=== PATIENT | female | born 1990 | race African-American/Black ===

== ENCOUNTER 2016-09-19 17:13 | Emergency (ER) | payer MEDICAID ==
[2016-09-19] MEDS ORDERED: Sodium Chloride 0.9% 10 ML Syringe FLUSH PRN (17:27)
[2016-09-19] MEDS ORDERED: Sodium Chloride 0.9% 2.5 ML Syringe FLUSH PRN (17:27)
--- NOTE | 2016-09-19 17:27 | EDM.PDOC ---
ED HPI GENERAL MEDICAL PROBLEM - General Chief Complaint: General Stated Complaint: DIZZY/SHORT OF BREATH Time Seen by Provider: 09/19/16 17:13 Source of Information: Reports: Patient History Limitations: Reports: No limitations - History of Present Illness INITIAL COMMENTS - FREE TEXT/NARRATIVE: History of present illness: [] Patient was on her way to work and when she was coughing and she started feeling very dizzy and short of breath. She arrived stating that the dizziness is worse when she turns her head and she is lightheaded. He has not passed out. She denies any chest pain, back pain or any recent illnesses or other complaints. Patient states she has no medical problems and only takes vitamins. After reviewing her chart I learned she has had a gastric sleeve. Review of systems: As per history of present illness and below otherwise all systems reviewed and negative. Past medical history: As per history of present illness and as reviewed below otherwise noncontributory. Surgical history: As per history of present illness and as reviewed below otherwise noncontributory. Social history: No reported history of drug or alcohol abuse. Family history: As per history of present illness and as reviewed below otherwise noncontributory. Physical exam: General: Well developed, well nourished in NAD HEENT: Atraumatic, normocephalic, pupils reactive, negative for conjunctival pallor or scleral icterus, mucous membranes moist, throat clear, neck supple, nontender, trachea midline. Lungs: Clear to auscultation, breath sounds equal bilaterally, chest nontender. Heart: S1S2, regular, negative for clicks, rubs, or JVD. Abdomen: Soft, nondistended, nontender. Negative for masses or hepatosplenomegaly. Negative for costovertebral tenderness. Pelvis: Stable nontender. Genitourinary: Deferred. Rectal: Deferred. Extremities: Atraumatic, negative for cords or calf pain. Neurovascular unremarkable. Neuro: Awake, alert, oriented. Cranial nerves II through XII unremarkable. Cerebellum unremarkable. Motor and sensory unremarkable throughout. Exam nonfocal. Diagnostics: []labs showing progressive worsening of anemia. troponin, d-dimer negative Therapeutics: []meclizine Impression: []benign positional vertigo Plan: []meclizine, feso4 supplements until further anemia work up. follow up pmd Definitive disposition and diagnosis as appropriate pending reevaluation and review of above. - Related Data Allergies Allergy/AdvReac Type Severity Reaction Status Date / Time morphine Allergy Severe Rash Verified 05/31/16 10:59 Home Meds: Home Meds Ascorbic Acid [Vitamin C] 1,000 mg PO DAILY 02/24/15 [History] [place]-3 Fatty Acids [Fish Oil] 900 mg PO DAILY 02/24/15 [History] Women Alive Multivitamin 1 tab PO DAILY 02/24/15 [History] Cyclobenzaprine HCl 5 mg PO TID PRN #30 tablet 05/31/16 [Rx] Past Medical History - Past Health History Medical/Surgical History: Denies Medical/Surgical History HEENT History: Reports: None Cardiovascular History: Reports: None Respiratory History: Reports: COPD Gastrointestinal History: Reports: None, Other (see below) Other Gastrointestinal History: Gastric Bypass done in [place] on 09/21/2015 Genitourinary History: Reports: None 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 Musculoskeletal History: Reports: None Other Musculoskeletal History: R wrist- fracture- plates et screws Neurological History: Reports: None Psychiatric History: Reports: None Endocrine/Metabolic History: Reports: None Hematologic History: Reports: None Immunologic History: Reports: None Oncologic (Cancer) History: Reports: None - Infectious Disease History Infectious Disease History: Reports: None - Past Surgical History GI Surgical History: Reports: Bariatric procedure Other Female Surgeries/Procedures: x2 Other Musculoskeletal Surgeries/Procedures:: Right wrist repair with metal plate Social & Family History - Family History Family Medical History: Noncontributory Cardiac: Reports: None Respiratory: Reports: None GI: Reports: None Psychiatric: Reports: None Endocrine/Metabolic: Reports: None Hematologic: Reports: None - Tobacco Use Smoking Status *Q: Never Smoker Second Hand Smoke Exposure: No - Caffeine Use Caffeine Use: Reports: None - Recreational Drug Use Recreational Drug Use: No ED ROS GENERAL - Review of Systems Review Of Systems: See Below (See history of present illness) ED EXAM, GENERAL - Physical Exam Exam: See Below (See history of present illness) Course - Vital Signs Last Recorded V/S: Last Vital Signs Temp 37.1 C 09/19/16 17:28 Pulse 98 09/19/16 17:28 Resp 18 09/19/16 17:28 BP 126/59 L 09/19/16 17:28 Pulse Ox 98 09/19/16 17:28 - Orders/Labs/Meds Orders: Active Orders 24 hr Category Date Time Status EKG 12 Lead [EKG Documentation Completion] [RC] STAT Care 09/19/16 17:19 Active Sodium Chloride 0.9% [Saline Flush] Med 09/19/16 17:27 Active 10 ml FLUSH ASDIRECTED PRN Sodium Chloride 0.9% [Saline Flush] Med 09/19/16 17:27 Active 2.5 ml FLUSH ASDIRECTED PRN Peripheral IV Insertion Adult [OM.PC] Stat Oth 09/19/16 17:27 Ordered Medication Orders Sodium Chloride (Saline Flush) 10 ml FLUSH ASDIRECTED PRN PRN Reason: Keep Vein Open Sodium Chloride (Saline Flush) 2.5 ml FLUSH ASDIRECTED PRN PRN Reason: Keep Vein Open Labs: Laboratory Tests 09/19/16 09/19/16 09/19/16 Range/Units 17:34 17:34 17:45 WBC (4.0-11.0) K/uL RBC (4.30-5.90) M/uL Hgb (12.0-16.0) g/dL Hct (36.0-46.0) % MCV (80.0-98.0) fL MCH (27.0-32.0) pg MCHC (31.0-37.0) g/dL RDW Std Deviation (28.0-62.0) fl RDW Coeff of Moe (11.0-15.0) % Plt Count (150-400) K/uL MPV (7.40-12.00) fL Neut % (Auto) (48.0-80.0) % Lymph % (Auto) (16.0-40.0) % Craig % (Auto) (0.0-15.0) % Eos % (Auto) (0.0-7.0) % Baso % (Auto) (0.0-1.5) % Neut # (Auto) (1.4-5.7) K/uL Lymph # (Auto) (0.6-2.4) K/uL Craig # (Auto) (0.0-0.8) K/uL Eos # (Auto) (0.0-0.7) K/uL Baso # (Auto) (0.0-0.1) K/uL Nucleated RBC % /100WBC Nucleated RBCs # K/uL D-Dimer, Quantitative (0.0-0.52) mg/LFEU Sodium (136-146) mmol/L Potassium (3.5-5.1) mmol/L Chloride (98-110) mmol/L Carbon Dioxide (21-31) mmol/L BUN (6.0-23.0) mg/dL Creatinine (0.6-1.5) mg/dL Est Cr Clr Drug Dosing mL/min Estimated GFR (MDRD) ml/min Glucose (60-110) mg/dL POC Glucose 90 (60-110) mg/dL Calcium (8.8-10.8) mg/dL Total Bilirubin (0.1-1.5) mg/dL AST (5-40) IU/L ALT (8-54) IU/L Alkaline Phosphatase (40-150) Troponin I (0.0-0.29) NG/ML Total Protein (6.0-8.0) g/dL Albumin (3.5-5.0) g/dL Globulin (2.0-3.5) g/dL Albumin/Globulin Ratio (1.3-2.8) Urine Color YELLOW Urine Appearance CLEAR Urine pH 5.5 (5.0-8.0) Ur Specific [place] 1.010 (1.001-1.035) Urine Protein NEGATIVE (NEGATIVE) mg/dL Urine Glucose (UA) NEGATIVE (NEGATIVE) mg/dL Urine Ketones NEGATIVE (NEGATIVE) mg/dL Urine Occult Blood NEGATIVE (NEGATIVE) Urine Nitrite NEGATIVE (NEGATIVE) Urine Bilirubin NEGATIVE (NEGATIVE) Urine Urobilinogen 0.2 (<2.0) EU/dL Ur Leukocyte Esterase NEGATIVE (NEGATIVE) Urine RBC 0-1 (0-2/HPF) Urine WBC 0-1 (0-5/HPF) Ur Epithelial Cells FEW (NONE-FEW) Urine Bacteria FEW (NEGATIVE) Urine HCG, Qual NEGATIVE (NEGATIVE) 09/19/16 09/19/16 09/19/16 Range/Units 17:46 17:46 17:46 WBC 7.06 (4.0-11.0) K/uL RBC 4.27 L (4.30-5.90) M/uL Hgb 10.2 L (12.0-16.0) g/dL Hct 33.2 L (36.0-46.0) % MCV 77.8 L (80.0-98.0) fL MCH 23.9 L (27.0-32.0) pg MCHC 30.7 L (31.0-37.0) g/dL RDW Std Deviation 41.1 (28.0-62.0) fl RDW Coeff of Moe 15 (11.0-15.0) % Plt Count 357 (150-400) K/uL MPV 10.40 (7.40-12.00) fL Neut % (Auto) 48.8 (48.0-80.0) % Lymph % (Auto) 40.4 H (16.0-40.0) % Craig % (Auto) 7.9 (0.0-15.0) % Eos % (Auto) 1.6 (0.0-7.0) % Baso % (Auto) 1.3 (0.0-1.5) % Neut # (Auto) 3.5 (1.4-5.7) K/uL Lymph # (Auto) 2.9 H (0.6-2.4) K/uL Craig # (Auto) 0.6 (0.0-0.8) K/uL Eos # (Auto) 0.1 (0.0-0.7) K/uL Baso # (Auto) 0.1 (0.0-0.1) K/uL Nucleated RBC % 0.0 /100WBC Nucleated RBCs # 0 K/uL D-Dimer, Quantitative (0.0-0.52) mg/LFEU Sodium 139 (136-146) mmol/L Potassium 4.0 (3.5-5.1) mmol/L Chloride 111 H (98-110) mmol/L Carbon Dioxide 21 (21-31) mmol/L BUN 12 (6.0-23.0) mg/dL Creatinine 0.7 (0.6-1.5) mg/dL Est Cr Clr Drug Dosing 126.16 mL/min Estimated GFR (MDRD) > 60.0 ml/min Glucose 86 (60-110) mg/dL POC Glucose (60-110) mg/dL Calcium 8.9 (8.8-10.8) mg/dL Total Bilirubin 0.7 (0.1-1.5) mg/dL AST 18 (5-40) IU/L ALT 13 (8-54) IU/L Alkaline Phosphatase 67 (40-150) Troponin I < 0.10 (0.0-0.29) NG/ML Total Protein 7.2 (6.0-8.0) g/dL Albumin 3.8 (3.5-5.0) g/dL Globulin 3.4 (2.0-3.5) g/dL Albumin/Globulin Ratio 1.1 L (1.3-2.8) Urine Color Urine Appearance Urine pH (5.0-8.0) Ur Specific [place] (1.001-1.035) Urine Protein (NEGATIVE) mg/dL Urine Glucose (UA) (NEGATIVE) mg/dL Urine Ketones (NEGATIVE) mg/dL Urine Occult Blood (NEGATIVE) Urine Nitrite (NEGATIVE) Urine Bilirubin (NEGATIVE) Urine Urobilinogen (<2.0) EU/dL Ur Leukocyte Esterase (NEGATIVE) Urine RBC (0-2/HPF) Urine WBC (0-5/HPF) Ur Epithelial Cells (NONE-FEW) Urine Bacteria (NEGATIVE) Urine HCG, Qual (NEGATIVE) 09/19/16 Range/Units 17:46 WBC (4.0-11.0) K/uL RBC (4.30-5.90) M/uL Hgb (12.0-16.0) g/dL Hct (36.0-46.0) % MCV (80.0-98.0) fL MCH (27.0-32.0) pg MCHC (31.0-37.0) g/dL RDW Std Deviation (28.0-62.0) fl RDW Coeff of Moe (11.0-15.0) % Plt Count (150-400) K/uL MPV (7.40-12.00) fL Neut % (Auto) (48.0-80.0) % Lymph % (Auto) (16.0-40.0) % Craig % (Auto) (0.0-15.0) % Eos % (Auto) (0.0-7.0) % Baso % (Auto) (0.0-1.5) % Neut # (Auto) (1.4-5.7) K/uL Lymph # (Auto) (0.6-2.4) K/uL Craig # (Auto) (0.0-0.8) K/uL Eos # (Auto) (0.0-0.7) K/uL Baso # (Auto) (0.0-0.1) K/uL Nucleated RBC % /100WBC Nucleated RBCs # K/uL D-Dimer, Quantitative 0.24 (0.0-0.52) mg/LFEU Sodium (136-146) mmol/L Potassium (3.5-5.1) mmol/L Chloride (98-110) mmol/L Carbon Dioxide (21-31) mmol/L BUN (6.0-23.0) mg/dL Creatinine (0.6-1.5) mg/dL Est Cr Clr Drug Dosing mL/min Estimated GFR (MDRD) ml/min Glucose (60-110) mg/dL POC Glucose (60-110) mg/dL Calcium (8.8-10.8) mg/dL Total Bilirubin (0.1-1.5) mg/dL AST (5-40) IU/L ALT (8-54) IU/L Alkaline Phosphatase (40-150) Troponin I (0.0-0.29) NG/ML Total Protein (6.0-8.0) g/dL Albumin (3.5-5.0) g/dL Globulin (2.0-3.5) g/dL Albumin/Globulin Ratio (1.3-2.8) Urine Color Urine Appearance Urine pH (5.0-8.0) Ur Specific [place] (1.001-1.035) Urine Protein (NEGATIVE) mg/dL Urine Glucose (UA) (NEGATIVE) mg/dL Urine Ketones (NEGATIVE) mg/dL Urine Occult Blood (NEGATIVE) Urine Nitrite (NEGATIVE) Urine Bilirubin (NEGATIVE) Urine Urobilinogen (<2.0) EU/dL Ur Leukocyte Esterase (NEGATIVE) Urine RBC (0-2/HPF) Urine WBC (0-5/HPF) Ur Epithelial Cells (NONE-FEW) Urine Bacteria (NEGATIVE) Urine HCG, Qual (NEGATIVE) Meds: Medications Generic Name Dose Route Start Last Admin Trade Name Freq PRN Reason Stop Dose Admin Sodium Chloride 10 ml 09/19/16 17:27 Saline Flush FLUSH ASDIRECTED PRN Keep Vein Open Sodium Chloride 2.5 ml 09/19/16 17:27 Saline Flush FLUSH ASDIRECTED PRN Keep Vein Open Discontinued Medications Generic Name Dose Route Start Last Admin Trade Name Adonay PRN Reason Stop Dose Admin Meclizine HCl 25 mg 09/19/16 18:29 09/19/16 18:35 Antivert PO 09/19/16 18:30 25 mg ONETIME ONE Administration Departure - Departure Time of Disposition: 18:44 Disposition: Home, Self-Care 01 Condition: good Clinical Impression: Benign positional vertigo Qualifiers: Laterality: unspecified laterality Qualified Code(s): H81.10 - Benign paroxysmal vertigo, unspecified ear Instructions: Benign Positional Vertigo Referrals: Evangelist Hammer MD [Primary Care Provider] - Forms: ED Department Discharge - My Orders Last 24 Hours: My Active Orders 09/19/16 17:19 EKG 12 Lead [EKG Documentation Completion] [RC] STAT 09/19/16 17:27 Sodium Chloride 0.9% [Saline Flush] 10 ml FLUSH ASDIRECTED PRN Sodium Chloride 0.9% [Saline Flush] 2.5 ml FLUSH ASDIRECTED PRN Peripheral IV Insertion Adult [OM.PC] Stat - Assessment/Plan Last 24 Hours: My Active Orders 09/19/16 17:19 EKG 12 Lead [EKG Documentation Completion] [RC] STAT 09/19/16 17:27 Sodium Chloride 0.9% [Saline Flush] 10 ml FLUSH ASDIRECTED PRN Sodium Chloride 0.9% [Saline Flush] 2.5 ml FLUSH ASDIRECTED PRN Peripheral IV Insertion Adult [OM.PC] Stat
[2016-09-19 17:29] VITALS: BP 126/59
[2016-09-19 18:25] LABS: CHLORIDE,CL 111 mmol/L (98-110); SODIUM,NA 139 mmol/L (136-146)
[2016-09-19] MEDS ORDERED: Meclizine 25 MG Tab PO ONE (18:29)
== END 2016-09-19 19:23 | disposition home or self-care (01) ==
LOC: MW.ED 17:13
DX: H81.10 Benign paroxysmal vertigo, unspecified ear (principal); J44.9 Chronic obstructive pulmonary disease, unspecified; Z79.899 Other long term (current) drug therapy; Z98.84 Bariatric surgery status; Z88.5 Allergy status to narcotic agent
CPT/HCPCS: 36415; 80053; 81001; 81025; 82962; 84484; 85025; 85379; 93005; 99284; A9270; 99283

== ENCOUNTER 2017-04-19 19:57 | Emergency (ER) | payer BC, MEDICAID ==
--- NOTE | 2017-04-19 20:09 | EDM.PDOC ---
ED HPI GENERAL MEDICAL PROBLEM - General Chief Complaint: Cardiovascular Problem Stated Complaint: PT HEART RACING Time Seen by Provider: 04/19/17 20:03 Source of Information: Reports: Patient History Limitations: Reports: No Limitations - History of Present Illness INITIAL COMMENTS - FREE TEXT/NARRATIVE: HISTORY AND PHYSICAL: History of present illness: Patient is a 27-year-old female who presents to the emergency room today with complaints of near syncope, fatigue, palpitations 24 hours. Patient reports that yesterday she felt fatigued otherwise had a normal day. This morning when she woke up she started to feel "like I could pass out.. all day". States she would intermittently get palpitations where she felt like her heart was racing. Denies any shortness of breath, abdominal pain, nausea, vomiting or diarrhea. Patient did have surgery on her thyroid in February 2017. She states that surgery was supposed to be a total thyroidectomy which she found out was only a partial thyroidectomy. She states that she was taking levothyroxine 150 g and was told she needed to stop the medication list last week as they mistakenly only took out part of the thyroid. Her thyroid was checked approximately one week ago. Last menstrual period was March 30, 2017-denies any chance of . Denies any use of stimulants, street drugs, smoking or caffeinated products. Review of systems: As per history of present illness and below otherwise all systems reviewed and negative. Past medical history: As per history of present illness and as reviewed below otherwise noncontributory. Surgical history: As per history of present illness and as reviewed below otherwise noncontributory. Social history: No reported history of drug or alcohol abuse. Family history: As per history of present illness and as reviewed below otherwise noncontributory. Physical exam: Gen.: Nontoxic appearing 27-year-old female. Well-developed and well-nourished -Greenlandic. Able to speak in full sentences without shortness of breath. HEENT: Atraumatic, normocephalic, pupils reactive, negative for conjunctival pallor or scleral icterus, mucous membranes moist, throat clear, neck supple, nontender, trachea midline. Lungs: Clear to auscultation, breath sounds equal bilaterally, chest nontender. Heart: S1S2, regular, negative for clicks, rubs, or JVD. Abdomen: Soft, obese, nondistended, left upper quadrant tenderness with deep palpation. Negative for masses. Negative for costovertebral tenderness. Pelvis: Stable nontender. Genitourinary: Deferred. Rectal: Deferred. Skin: There is a well healed linear scar from her thyroidectomy.Skin lesions or rashes noted. Extremities: Atraumatic, negative for cords or calf pain. Neurovascular unremarkable. Neuro: Awake, alert, oriented. Cranial nerves II through XII unremarkable. Cerebellum unremarkable. Motor and sensory unremarkable throughout. Exam nonfocal. Discussed the lab results with patient. I did inform her that her hemoglobin was low today. She does state that she has been told that her "iron is low" and she has heavy menses for the past couple years. Presumptively iron deficiency anemia. She has never needed blood transfusions. No history of sickle cell anemia. Chest x-ray shows no acute findings, unremarkable. TSH is within normal limits. Urinalysis is normal. We did discuss follow-up and that she needs to follow-up with her primary care provider if she continues to have palpitations and to address her anemia. Today' s EKG and diagnostic cardiac sonographer do not show any abnormalities. Follow-up as needed with an FLIGHT SUPERINTENDENT to discuss the menses. Patient voices understanding and is agreeable to plan of care. Denies any further questions at this time. Diagnostics: CBC, CMP, troponin, EKG, one view chest x-ray, TSH, UA, urine Therapeutics: IV fluid Impression: Palpitations Plan: 1. Please follow-up with your primary care provider to address your palpitations if these continue. You may need a Holter monitor if these are persistent. Make sure you are staying well-hydrated to prevent dehydration. Today's TSH (thyroid level) was normal. Please have this monitored by your primary care provider. 2. Please follow-up with FLIGHT SUPERINTENDENT to discuss your heavy menses and address further follow-up. I would like you to start an iron pill daily. 3. Return to the ED as needed and as discussed. Definitive disposition and diagnosis as appropriate pending reevaluation and review of above. Onset: Today Duration: Day(s): Location: Reports: Chest, Generalized - Related Data Allergies Allergy/AdvReac Type Severity Reaction Status Date / Time morphine Allergy Severe Rash Verified 05/31/16 10:59 Home Meds: Home Meds Ascorbic Acid [Vitamin C] 1,000 mg PO DAILY 02/24/15 [History] Women Alive Multivitamin 1 tab PO DAILY 02/24/15 [History] Cholecalciferol (Vitamin D3) [Vitamin D3] 400 units PO DAILY 04/19/17 [History] Ferrous Sulfate [Iron] 04/19/17 [History] Past Medical History - Past Health History Medical/Surgical History: Denies Medical/Surgical History HEENT History: Reports: None Cardiovascular History: Reports: None Respiratory History: Reports: COPD Gastrointestinal History: Reports: None, Other (See Below) Other Gastrointestinal History: Gastric Bypass done in [place] on 09/21/2015 Genitourinary History: Reports: None FLIGHT SUPERINTENDENT History: Reports: None Musculoskeletal History: Reports: None Other Musculoskeletal History: R wrist- fracture- plates et screws Neurological History: Reports: None Psychiatric History: Reports: None Endocrine/Metabolic History: Reports: None Hematologic History: Reports: None Immunologic History: Reports: None Oncologic (Cancer) History: Reports: None - Infectious Disease History Infectious Disease History: Reports: None - Past Surgical History GI Surgical History: Reports: Bariatric Procedure Female Surgical History: Reports: Other (See Below) Social & Family History - Family History Family Medical History: Noncontributory Cardiac: Reports: None Respiratory: Reports: None GI: Reports: None Psychiatric: Reports: None Endocrine/Metabolic: Reports: None Hematologic: Reports: None - Tobacco Use Smoking Status *Q: Never Smoker Second Hand Smoke Exposure: No - Caffeine Use Caffeine Use: Reports: None - Recreational Drug Use Recreational Drug Use: No ED ROS GENERAL - Review of Systems Review Of Systems: ROS reveals no pertinent complaints other than HPI. ED EXAM, GENERAL - Physical Exam Exam: See Below (See dictation) Course - Vital Signs Last Recorded V/S: Last Vital Signs Temp 36.1 C 04/19/17 20:03 Pulse 77 04/19/17 21:55 Resp 12 04/19/17 21:55 BP 115/74 04/19/17 21:55 Pulse Ox 98 04/19/17 21:55 Orthostatic Blood Pressure [ 124/64 Standing] Orthostatic Blood Pressure [ 127/61 Sitting] Orthostatic Blood Pressure [ 118/66 Supine] - Orders/Labs/Meds Orders: Active Orders 24 hr Category Date Time Status EKG Documentation Completion [RC] STAT Care 04/19/17 20:09 Active Orthostatic Vital Signs [RC] ASDIRECTED Care 04/19/17 20:09 Active Chest 1V Frontal [CR] Stat Exams 04/19/17 20:09 Taken CULTURE URINE [RM] Stat Lab 04/19/17 21:06 Received Labs: Laboratory Tests 04/19/17 04/19/17 04/19/17 Range/Units 20:06 20:06 21:06 WBC 7.22 (4.0-11.0) K/uL RBC 4.20 L (4.30-5.90) M/uL Hgb 8.3 L (12.0-16.0) g/dL Hct 28.9 L (36.0-46.0) % MCV 68.8 L (80.0-98.0) fL MCH 19.8 L (27.0-32.0) pg MCHC 28.7 L (31.0-37.0) g/dL RDW Std Deviation 40.1 (28.0-62.0) fl RDW Coeff of Moe 16 H (11.0-15.0) % Plt Count 389 (150-400) K/uL MPV 10.10 (7.40-12.00) fL Neut % (Auto) 46.0 L (48.0-80.0) % Lymph % (Auto) 42.2 H (16.0-40.0) % [place] % (Auto) 9.7 (0.0-15.0) % Eos % (Auto) 1.1 (0.0-7.0) % Baso % (Auto) 1.0 (0.0-1.5) % Neut # (Auto) 3.3 (1.4-5.7) K/uL Lymph # (Auto) 3.1 H (0.6-2.4) K/uL [place] # (Auto) 0.7 (0.0-0.8) K/uL Eos # (Auto) 0.1 (0.0-0.7) K/uL Baso # (Auto) 0.1 (0.0-0.1) K/uL Nucleated RBC % 0.0 /100WBC Nucleated RBCs # 0 K/uL Sodium 138 (136-146) mmol/L Potassium 3.5 (3.5-5.1) mmol/L Chloride 109 (98-110) mmol/L Carbon Dioxide 22 (21-31) mmol/L BUN 10 (6.0-23.0) mg/dL Creatinine 0.7 (0.6-1.5) mg/dL Est Cr Clr Drug Dosing 125.04 mL/min Estimated GFR (MDRD) > 60.0 ml/min Glucose 87 (60-110) mg/dL Calcium 8.8 (8.8-10.8) mg/dL Total Bilirubin 0.7 (0.1-1.5) mg/dL AST 20 (5-40) IU/L ALT 16 (8-54) IU/L Alkaline Phosphatase 61 (40-150) Troponin I < 0.10 (0.0-0.29) NG/ML Total Protein 7.1 (6.0-8.0) g/dL Albumin 3.8 (3.5-5.0) g/dL Globulin 3.3 (2.0-3.5) g/dL Albumin/Globulin Ratio 1.2 L (1.3-2.8) TSH 3rd Generation 0.67 (0.47-5.0) uIU/mL Urine Color Urine Appearance Urine pH (5.0-8.0) Ur Specific [place] (1.001-1.035) Urine Protein (NEGATIVE) mg/dL Urine Glucose (UA) (NEGATIVE) mg/dL Urine Ketones (NEGATIVE) mg/dL Urine Occult Blood (NEGATIVE) Urine Nitrite (NEGATIVE) Urine Bilirubin (NEGATIVE) Urine Urobilinogen (<2.0) EU/dL Ur Leukocyte Esterase (NEGATIVE) Urine RBC (0-2/HPF) Urine WBC (0-5/HPF) Ur Epithelial Cells (NONE-FEW) Urine Bacteria (NEGATIVE) Urine HCG, Qual NEGATIVE (NEGATIVE) 04/19/17 Range/Units 21:06 WBC (4.0-11.0) K/uL RBC (4.30-5.90) M/uL Hgb (12.0-16.0) g/dL Hct (36.0-46.0) % MCV (80.0-98.0) fL MCH (27.0-32.0) pg MCHC (31.0-37.0) g/dL RDW Std Deviation (28.0-62.0) fl RDW Coeff of Moe (11.0-15.0) % Plt Count (150-400) K/uL MPV (7.40-12.00) fL Neut % (Auto) (48.0-80.0) % Lymph % (Auto) (16.0-40.0) % [place] % (Auto) (0.0-15.0) % Eos % (Auto) (0.0-7.0) % Baso % (Auto) (0.0-1.5) % Neut # (Auto) (1.4-5.7) K/uL Lymph # (Auto) (0.6-2.4) K/uL [place] # (Auto) (0.0-0.8) K/uL Eos # (Auto) (0.0-0.7) K/uL Baso # (Auto) (0.0-0.1) K/uL Nucleated RBC % /100WBC Nucleated RBCs # K/uL Sodium (136-146) mmol/L Potassium (3.5-5.1) mmol/L Chloride (98-110) mmol/L Carbon Dioxide (21-31) mmol/L BUN (6.0-23.0) mg/dL Creatinine (0.6-1.5) mg/dL Est Cr Clr Drug Dosing mL/min Estimated GFR (MDRD) ml/min Glucose (60-110) mg/dL Calcium (8.8-10.8) mg/dL Total Bilirubin (0.1-1.5) mg/dL AST (5-40) IU/L ALT (8-54) IU/L Alkaline Phosphatase (40-150) Troponin I (0.0-0.29) NG/ML Total Protein (6.0-8.0) g/dL Albumin (3.5-5.0) g/dL Globulin (2.0-3.5) g/dL Albumin/Globulin Ratio (1.3-2.8) TSH 3rd Generation (0.47-5.0) uIU/mL Urine Color YELLOW Urine Appearance HAZY Urine pH 6.0 (5.0-8.0) Ur Specific [place] >= 1.030 (1.001-1.035) Urine Protein NEGATIVE (NEGATIVE) mg/dL Urine Glucose (UA) NEGATIVE (NEGATIVE) mg/dL Urine Ketones TRACE H (NEGATIVE) mg/dL Urine Occult Blood NEGATIVE (NEGATIVE) Urine Nitrite NEGATIVE (NEGATIVE) Urine Bilirubin NEGATIVE (NEGATIVE) Urine Urobilinogen 0.2 (<2.0) EU/dL Ur Leukocyte Esterase TRACE (NEGATIVE) Urine RBC 1-2 (0-2/HPF) Urine WBC 4-6 (0-5/HPF) Ur Epithelial Cells MODERATE (NONE-FEW) Urine Bacteria FEW (NEGATIVE) Urine HCG, Qual (NEGATIVE) Meds: Medications Discontinued Medications Generic Name Dose Route Start Last Admin Trade Name Barrettq PRN Reason Stop Dose Admin Sodium Chloride 1,000 mls @ 999 mls/hr 04/19/17 20:10 04/19/17 20:23 Normal Saline IV 04/19/17 21:10 999 mls/hr STAT ONE Administration Departure - Departure Time of Disposition: 21:44 Disposition: Home, Self-Care 01 Condition: Good Clinical Impression: Palpitations Instructions: Palpitations, [id number] Referrals: PCP,None [Primary Care Provider] - Forms: ED Department Discharge Additional Instructions: My general discharge The following information is given to patients seen in the emergency department who are being discharged to home. This information is to outline your options for follow-up care. We provide all patients seen in our emergency department with a follow-up referral. The need for follow-up, as well as the timing and circumstances, are variable depending upon the specifics of your emergency department visit. If you don't have a primary care physician on staff, we will provide you with a referral. We always advise you to contact your personal physician following an emergency department visit to inform them of the circumstance of the visit and for follow-up with them and/or the need for any referrals to a consulting specialist. The emergency department will also refer you to a specialist when appropriate. This referral assures that you have the opportunity for follow-up care with a specialist. All of these measure are taken in an effort to provide you with optimal care, which includes your follow-up. Under all circumstances we always encourage you to contact your private physician who remains a resource for coordinating your care. When calling for follow-up care, please make the office aware that this follow-up is from your recent emergency room visit. If for any reason you are refused follow-up, please contact the [facility] Emergency Department at and asked to speak to the emergency department charge nurse. [facility] [address] [place] [address] [facility] [address] [place] [address] 1. Please follow-up with your primary care provider to address your palpitations if these continue. You may need a Holter monitor if these are persistent. Make sure you are staying well-hydrated to prevent dehydration. Today's TSH (thyroid level) was normal. Please have this monitored by your primary care provider. 2. Please follow-up with FLIGHT SUPERINTENDENT to discuss your heavy menses and address further follow-up. I would like you to start an iron pill daily for your anemia. 3. Return to the ED as needed and as discussed. - My Orders Last 24 Hours: My Active Orders 04/19/17 20:09 EKG Documentation Completion [RC] STAT Orthostatic Vital Signs [RC] ASDIRECTED Chest 1V Frontal [CR] Stat 04/19/17 21:06 CULTURE URINE [RM] Stat - Assessment/Plan Last 24 Hours: My Active Orders 04/19/17 20:09 EKG Documentation Completion [RC] STAT Orthostatic Vital Signs [RC] ASDIRECTED Chest 1V Frontal [CR] Stat 04/19/17 21:06 CULTURE URINE [RM] Stat
[2017-04-19] MEDS ORDERED: Sodium Chloride 0.9% 1,000 ML IV ONE (20:10)
[2017-04-19 20:45] LABS: CHLORIDE,CL 109 mmol/L (98-110); SODIUM,NA 138 mmol/L (136-146)
[2017-04-19 22:03] VITALS: BP 115/74
--- NOTE | 2017-04-20 14:43 | CR ---
EXAM DATE: 04/19/17 PATIENT'S AGE: 27 Patient: LISA BURRIS Facility: [place], [place] Site . Site : 1990 Study: XRay Chest [id number]/9/2017 8:52:43 PM Ordering Physician: Doctor Victoria Final Report: INDICATION: palpitations, lightheaded TECHNIQUE: Chest 1 view. COMPARISON: 05/31/16 FINDINGS: Cardiovascular and mediastinum: Heart size and vasculature are normal in caliber and appearance. Mediastinum is within normal limits. Lungs and pleural space: Lungs are clear. No sign of infiltrate or mass. No sign of pleural effusion. No pneumothorax. Bones and soft tissues: No significant findings. IMPRESSION: Unremarkable chest. Dictated by: Danny Javed MD @ 04/19/2017 21:10:10 (Electronic Signature) Report Signed by Proxy. GIANCARLO
== END 2017-04-19 21:57 | disposition home or self-care (01) ==
LOC: MW.ED 19:57
DX: R00.2 Palpitations (principal); Z88.5 Allergy status to narcotic agent; Z79.899 Other long term (current) drug therapy
CPT/HCPCS: 36415; 71010; 80053; 81001; 81025; 84443; 84484; 85025; 87086; 93005; 96360; 96361; 99285; J7040; 99283

== ENCOUNTER 2017-06-14 22:32 | Emergency (ER) | payer BC ==
[2017-06-15] MEDS ORDERED: Sodium Chloride 0.9% 1,000 ML IV ONE (00:04)
--- NOTE | 2017-06-15 00:05 | EDM.PDOC ---
ED HPI GENERAL MEDICAL PROBLEM - General Chief Complaint: Fever Stated Complaint: SICK Time Seen by Provider: 06/15/17 00:04 Source of Information: Reports: Patient - History of Present Illness INITIAL COMMENTS - FREE TEXT/NARRATIVE: HISTORY AND PHYSICAL: History of present illness: [Objective fever and ear pain that began yesterday Patient has had 2 days of ear pain worsening with flight from [place] has ever home visiting, she also complains of sore throat is able to speak freely no muffled force trismus or drooling States that she feels dry has not been taking fluids as much as usual she does have dry lips but mucosa is moist No fever nausea vomiting chills sweats at current ] Review of systems: As per history of present illness and below otherwise all systems reviewed and negative. Past medical history: As per history of present illness and as reviewed below otherwise noncontributory. Surgical history: As per history of present illness and as reviewed below otherwise noncontributory. Social history: No reported history of drug or alcohol abuse. Family history: As per history of present illness and as reviewed below otherwise noncontributory. Physical exam: HEENT: Atraumatic, normocephalic, pupils reactive, negative for conjunctival pallor or scleral icterus, mucous membranes moist, throat clear, neck supple, nontender, trachea midline. Tympanic membranes are both reddened and dull with effusion slight bulge loss of landmarks no mastoid tenderness oropharynx moderate erythema no exudates Lungs: Clear to auscultation, breath sounds equal bilaterally, chest nontender. Heart: S1S2, regular, negative for clicks, rubs, or JVD. Abdomen: Soft, nondistended, nontender. Negative for masses or hepatosplenomegaly. Negative for costovertebral tenderness. Pelvis: Stable nontender. Genitourinary: Deferred. Rectal: Deferred. Extremities: Atraumatic, negative for cords or calf pain. Neurovascular unremarkable. Neuro: Awake, alert, oriented. Cranial nerves II through XII unremarkable. Cerebellum unremarkable. Motor and sensory unremarkable throughout. Exam nonfocal. Diagnostics: [Influenza Strep Urine HCG ] Therapeutics: [Normal saline] Amoxicillin 875 by mouth twice a day #20 no refill Impression: Bilateral otitis media Pharyngitis Definitive disposition and diagnosis as appropriate pending reevaluation and review of above. - Related Data Allergies Allergy/AdvReac Type Severity Reaction Status Date / Time morphine Allergy Severe Rash Verified 05/31/16 10:59 Home Meds: Home Meds Ascorbic Acid [Vitamin C] 1,000 mg PO DAILY 02/24/15 [History] Women Alive Multivitamin 1 tab PO DAILY 02/24/15 [History] Cholecalciferol (Vitamin D3) [Vitamin D3] 400 units PO DAILY 04/19/17 [History] Ferrous Sulfate [Iron] 04/19/17 [History] Past Medical History - Past Health History Medical/Surgical History: Denies Medical/Surgical History HEENT History: Reports: None Cardiovascular History: Reports: None Respiratory History: Reports: COPD Gastrointestinal History: Reports: None, Other (See Below) Other Gastrointestinal History: Gastric Bypass done in [place] on 09/21/2015 Genitourinary History: Reports: None [employer]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 Musculoskeletal History: Reports: None Other Musculoskeletal History: R wrist- fracture- plates et screws Neurological History: Reports: None Psychiatric History: Reports: None Endocrine/Metabolic History: Reports: None Hematologic History: Reports: None Immunologic History: Reports: None Oncologic (Cancer) History: Reports: None - Infectious Disease History Infectious Disease History: Reports: None - Past Surgical History GI Surgical History: Reports: Bariatric Procedure Female Surgical History: Reports: Other (See Below) Social & Family History - Family History Family Medical History: Noncontributory Cardiac: Reports: None Respiratory: Reports: None GI: Reports: None Psychiatric: Reports: None Endocrine/Metabolic: Reports: None Hematologic: Reports: None - Tobacco Use Smoking Status *Q: Never Smoker Second Hand Smoke Exposure: No - Caffeine Use Caffeine Use: Reports: None - Recreational Drug Use Recreational Drug Use: No ED ROS GENERAL - Review of Systems Review Of Systems: ROS reveals no pertinent complaints other than HPI. ED EXAM, GENERAL - Physical Exam Exam: See Below Course - Vital Signs Last Recorded V/S: Last Vital Signs Temp 98.6 F 06/14/17 23:51 Pulse 95 06/14/17 23:51 Resp 20 06/14/17 23:51 BP 124/75 06/14/17 23:51 Pulse Ox 95 06/14/17 23:51 - Orders/Labs/Meds Orders: Active Orders 24 hr Category Date Time Status CULTURE STREP A CONFIRMATION [RM] Stat Lab 06/14/17 23:54 Results HCG QUALITATIVE,URINE [URCHEM] Stat Lab 06/14/17 23:17 Uncollected STREP SCRN A RAPID W CULT CONF [RM] Stat Lab 06/14/17 23:54 Results UA W/MICROSCOPIC [URIN] Stat Lab 06/14/17 23:17 Uncollected Sodium Chloride 0.9% [Normal Saline] 1,000 ml Med 06/15/17 00:04 Active IV STAT Medication Orders Sodium Chloride (Normal Saline) 1,000 mls @ 999 mls/hr IV STAT ONE Stop: 06/15/17 01:04 Last Admin: 06/15/17 00:25 Dose: 999 mls/hr Meds: Medications Generic Name Dose Route Start Last Admin Trade Name Freq PRN Reason Stop Dose Admin Sodium Chloride 1,000 mls @ 999 mls/hr 06/15/17 00:04 06/15/17 00:25 Normal Saline IV 06/15/17 01:04 999 mls/hr STAT ONE Administration Departure - Departure Time of Disposition: 00:32 Disposition: Home, Self-Care 01 Condition: Good Clinical Impression: Otitis media, Pharyngitis - Discharge Information Referrals: PCP,None [Primary Care Provider] - Forms: ED Department Discharge Additional Instructions: The following information is given to patients seen in the emergency department who are being discharged to home. This information is to outline your options for follow-up care. We provide all patients seen in our emergency department with a follow-up referral. The need for follow-up, as well as the timing and circumstances, are variable depending upon the specifics of your emergency department visit. If you don't have a primary care physician on staff, we will provide you with a referral. We always advise you to contact your personal physician following an emergency department visit to inform them of the circumstance of the visit and for follow-up with them and/or the need for any referrals to a consulting specialist. The emergency department will also refer you to a specialist when appropriate. This referral assures that you have the opportunity for follow-up care with a specialist. All of these measure are taken in an effort to provide you with optimal care, which includes your follow-up. Under all circumstances we always encourage you to contact your private physician who remains a resource for coordinating your care. When calling for follow-up care, please make the office aware that this follow-up is from your recent emergency room visit. If for any reason you are refused follow-up, please contact the [facility] emergency department at and asked to speak to the emergency department charge nurse. - My Orders Last 24 Hours: My Active Orders 06/14/17 23:17 HCG QUALITATIVE,URINE [URCHEM] Stat UA W/MICROSCOPIC [URIN] Stat 06/14/17 23:54 CULTURE STREP A CONFIRMATION [RM] Stat STREP SCRN A RAPID W CULT CONF [RM] Stat 06/15/17 00:04 Sodium Chloride 0.9% [Normal Saline] 1,000 ml IV STAT - Assessment/Plan Last 24 Hours: My Active Orders 06/14/17 23:17 HCG QUALITATIVE,URINE [URCHEM] Stat UA W/MICROSCOPIC [URIN] Stat 06/14/17 23:54 CULTURE STREP A CONFIRMATION [RM] Stat STREP SCRN A RAPID W CULT CONF [RM] Stat 06/15/17 00:04 Sodium Chloride 0.9% [Normal Saline] 1,000 ml IV STAT
[2017-06-15] MEDS ORDERED: cefTRIAXone 1,000 MG VIAL IVPUSH STA (00:34)
[2017-06-15] MEDS ORDERED: cefTRIAXone 1 GM in Premix Bag 1 BAG IV ONE (00:53)
[2017-06-15 02:28] VITALS: BP 127/64
== END 2017-06-15 02:06 | disposition home or self-care (01) ==
LOC: MW.ED 22:32
DX: H66.93 Otitis media, unspecified, bilateral (principal); J02.9 Acute pharyngitis, unspecified; Z88.5 Allergy status to narcotic agent
CPT/HCPCS: 87081; 87804; 87880; 96361; 96365; 99283; J0696; J7040

== ENCOUNTER 2018-09-30 19:03 | Emergency (ER) | payer OTHER ==
[2018-09-30] MEDS ORDERED: Albuterol/Ipratropium 3.0-0.5 MG/3 ML Neb Soln ONE (19:05)
[2018-09-30] MEDS ORDERED: Sodium Chloride 0.9% 1,000 ML IV ONE (19:10)
[2018-09-30] MEDS ORDERED: Albuterol/Ipratropium 3.0-0.5 MG/3 ML Neb Soln NEB ONE (19:15)
--- NOTE | 2018-09-30 19:21 | EDM.PDOC ---
ED HPI GENERAL MEDICAL PROBLEM - General Chief Complaint: Respiratory Problem Stated Complaint: PT HAS DIFFICULTY BREATHING Time Seen by Provider: 09/30/18 19:06 Source of Information: Reports: Patient History Limitations: Reports: No Limitations - History of Present Illness INITIAL COMMENTS - FREE TEXT/NARRATIVE: HISTORY AND PHYSICAL: History of present illness: Patient is a 28-year-old female who presents to the emergency room with complaints of shortness of breath prior to arrival. She states approximately 15 minutes prior to presenting to the emergency room she started having left upper chest wall pain and shortness of breath. Patient appears anxious, tearful and has hyperventilating respirations. She states she is 4 months . Has been receiving routine LEAD NEURODIAGNOSTIC TECHNOLOGIST care by Dr. Briggs. Patient denies any fever, chills, headache, change in vision, syncope or near syncope. Denies any chest pain, back pain, shortness of breath or cough. Denies any abdominal pain, vaginal bleeding/cramping/discharge, nausea, vomiting, diarrhea, constipation or dysuria. Has not noted any blood in urine or stool. Patient had been eating and drinking appropriately. Review of systems: As per history of present illness and below otherwise all systems reviewed and negative. Past medical history: As per history of present illness and as reviewed below otherwise noncontributory. Surgical history: As per history of present illness and as reviewed below otherwise noncontributory. Social history: See social history for further information Family history: As per history of present illness and as reviewed below otherwise noncontributory. Physical exam: General: Well-developed and well-nourished 28-year-old female. Alert and oriented. Nontoxic appearing, mildly anxious and tearful during examination. HEENT: Atraumatic, normocephalic, pupils equal and reactive bilaterally, negative for conjunctival pallor or scleral icterus, mucous membranes moist, TMs normal bilaterally, throat clear, neck supple, nontender, trachea midline. No drooling or trismus noted. No meningeal signs. No hot potato voice noted. Lungs: Clear to auscultation, breath sounds equal bilaterally, chest nontender. Heart: S1S2, regular rate and rhythm without overt murmur Abdomen: Soft, nondistended, nontender. Negative for masses or hepatosplenomegaly. Negative for costovertebral tenderness. Pelvis: Stable nontender. Genitourinary: Deferred. Rectal: Deferred. Skin: Intact, warm, dry. No lesions or rashes noted. Extremities: Atraumatic, moves all extremities per self with difficulty or deficits, negative for cords or calf pain. Neurovascular unremarkable. Neuro: Awake, alert, oriented. Cranial nerves II through XII unremarkable. Cerebellum unremarkable. Motor and sensory unremarkable throughout. Exam nonfocal. Notes: Patient's oxygen saturation is 100% on room air. Physical examination is within normal limits other than appearing anxious. Nonrebreather was placed on patient by nursing staff along with coaching to slow her respirations. We discussed an x -ray, at this time risks of radiation exposure outweigh the benefits. FHT 140's. Patient offers no OBGYN concerns. Lab work is unremarkable. Patient' s symptoms have resolved. Have an appointment with her LEAD NEURODIAGNOSTIC TECHNOLOGIST on 10/04/2018 ( Sunday). Supportive care measures were reviewed and discussed. Voices understanding and is agreeable to plan of care. Denies any further questions or concerns at this time. Diagnostics: CBC, CMP, UA Therapeutics: IV fluid, DuoNeb Prescription: None Impression: Hyperventilation Atypical chest pain, resolved Anemia Plan: 1. Please use the inhaler as needed and as directed. 2. Continue taking her and iron supplement daily. 3. Follow-up with your primary LEAD NEURODIAGNOSTIC TECHNOLOGIST as we discussed. Return to the ED as needed and as discussed. Definitive disposition and diagnosis as appropriate pending reevaluation and review of above. Chest Pain Score (Numeric/FACES): 10 - Related Data Allergies Allergy/AdvReac Type Severity Reaction Status Date / Time morphine Allergy Severe Rash Verified 09/30/18 19:12 Home Meds: Home Meds Ascorbic Acid [Vitamin C] 1,000 mg PO DAILY 02/24/15 [History] Women Alive Multivitamin 1 tab PO DAILY 02/24/15 [History] Ferrous Sulfate [Iron] 1 tab PO DAILY 04/19/17 [History] Past Medical History - Past Health History Medical/Surgical History: Denies Medical/Surgical History HEENT History: Reports: None Cardiovascular History: Reports: None Respiratory History: Reports: COPD Gastrointestinal History: Reports: None, Other (See Below) Other Gastrointestinal History: Gastric Bypass done in [place] on 09/21/2015 Genitourinary History: Reports: None LEAD NEURODIAGNOSTIC TECHNOLOGIST History: Reports: None Musculoskeletal History: Reports: None Other Musculoskeletal History: R wrist- fracture- plates et screws Neurological History: Reports: None Psychiatric History: Reports: None Endocrine/Metabolic History: Reports: None Hematologic History: Reports: None Immunologic History: Reports: None Oncologic (Cancer) History: Reports: None - Infectious Disease History Infectious Disease History: Reports: None - Past Surgical History GI Surgical History: Reports: Bariatric Procedure Female Surgical History: Reports: Other (See Below) Social & Family History - Family History Family Medical History: Noncontributory Cardiac: Reports: None Respiratory: Reports: None GI: Reports: None Psychiatric: Reports: None Endocrine/Metabolic: Reports: None Hematologic: Reports: None - Caffeine Use Caffeine Use: Reports: None ED ROS GENERAL - Review of Systems Review Of Systems: ROS reveals no pertinent complaints other than HPI. ED EXAM, GENERAL - Physical Exam Exam: See Below (See dictation) Course - Vital Signs Last Recorded V/S: Last Vital Signs Temp 98 F 09/30/18 19:06 Pulse 88 09/30/18 19:59 Resp 20 09/30/18 19:59 BP 151/71 H 09/30/18 19:59 Pulse Ox 99 09/30/18 19:59 - Orders/Labs/Meds Orders: Active Orders 24 hr Category Date Time Status Heart Rate [RC] Click to Edit Care 09/30/18 19:10 Active RT Aerosol Therapy [RC] ASDIRECTED Care 09/30/18 19:15 Active Labs: Laboratory Tests 09/30/18 09/30/18 09/30/18 Range/Units 19:25 19:25 19:25 WBC 12.95 H (4.0-11.0) K/uL RBC 4.35 (4.30-5.90) M/uL Hgb 9.7 L (12.0-16.0) g/dL Hct 32.5 L (36.0-46.0) % MCV 74.7 L (80.0-98.0) fL MCH 22.3 L (27.0-32.0) pg MCHC 29.8 L (31.0-37.0) g/dL RDW Std Deviation 46.6 (28.0-62.0) fl RDW Coeff of Moe 18 H (11.0-15.0) % Plt Count 397 (150-400) K/uL MPV 10.60 (7.40-12.00) fL Neut % (Auto) 69.2 (48.0-80.0) % Lymph % (Auto) 24.0 (16.0-40.0) % Crawford % (Auto) 5.5 (0.0-15.0) % Eos % (Auto) 1.0 (0.0-7.0) % Baso % (Auto) 0.3 (0.0-1.5) % Neut # (Auto) 9.0 H (1.4-5.7) K/uL Lymph # (Auto) 3.1 H (0.6-2.4) K/uL Crawford # (Auto) 0.7 (0.0-0.8) K/uL Eos # (Auto) 0.1 (0.0-0.7) K/uL Baso # (Auto) 0.0 (0.0-0.1) K/uL Nucleated RBC % 0.0 /100WBC Nucleated RBCs # 0 K/uL Sodium 137 (136-145) mmol/L Potassium 3.5 (3.5-5.1) mmol/L Chloride 103 (98-107) mmol/L Carbon Dioxide 20.7 L (21.0-32.0) mmol/L BUN 8 (7.0-18.0) mg/dL Creatinine 0.8 (0.6-1.0) mg/dL Est Cr Clr Drug Dosing 108.44 mL/min Estimated GFR (MDRD) > 60.0 ml/min Glucose 133 H (74-106) mg/dL Calcium 8.7 (8.5-10.1) mg/dL Total Bilirubin 0.4 (0.2-1.0) mg/dL AST 10 L (15-37) IU/L ALT 18 (14-63) IU/L Alkaline Phosphatase 62 (46-116) U/L Total Protein 7.5 (6.4-8.2) g/dL Albumin 3.0 L (3.4-5.0) g/dL Globulin 4.5 H (2.6-4.0) g/dL Albumin/Globulin Ratio 0.7 L (0.9-1.6) TSH 3rd Generation (0.36-3.74) uIU/mL Urine Color YELLOW Urine Appearance CLEAR Urine pH 6.0 (5.0-8.0) Ur Specific [place] <= 1.005 (1.001-1.035) Urine Protein NEGATIVE (NEGATIVE) mg/dL Urine Glucose (UA) NEGATIVE (NEGATIVE) mg/dL Urine Ketones NEGATIVE (NEGATIVE) mg/dL Urine Occult Blood NEGATIVE (NEGATIVE) Urine Nitrite NEGATIVE (NEGATIVE) Urine Bilirubin NEGATIVE (NEGATIVE) Urine Urobilinogen 0.2 (<2.0) EU/dL Ur Leukocyte Esterase NEGATIVE (NEGATIVE) 09/30/18 Range/Units 19:25 WBC (4.0-11.0) K/uL RBC (4.30-5.90) M/uL Hgb (12.0-16.0) g/dL Hct (36.0-46.0) % MCV (80.0-98.0) fL MCH (27.0-32.0) pg MCHC (31.0-37.0) g/dL RDW Std Deviation (28.0-62.0) fl RDW Coeff of Moe (11.0-15.0) % Plt Count (150-400) K/uL MPV (7.40-12.00) fL Neut % (Auto) (48.0-80.0) % Lymph % (Auto) (16.0-40.0) % Crawford % (Auto) (0.0-15.0) % Eos % (Auto) (0.0-7.0) % Baso % (Auto) (0.0-1.5) % Neut # (Auto) (1.4-5.7) K/uL Lymph # (Auto) (0.6-2.4) K/uL Crawford # (Auto) (0.0-0.8) K/uL Eos # (Auto) (0.0-0.7) K/uL Baso # (Auto) (0.0-0.1) K/uL Nucleated RBC % /100WBC Nucleated RBCs # K/uL Sodium (136-145) mmol/L Potassium (3.5-5.1) mmol/L Chloride (98-107) mmol/L Carbon Dioxide (21.0-32.0) mmol/L BUN (7.0-18.0) mg/dL Creatinine (0.6-1.0) mg/dL Est Cr Clr Drug Dosing mL/min Estimated GFR (MDRD) ml/min Glucose (74-106) mg/dL Calcium (8.5-10.1) mg/dL Total Bilirubin (0.2-1.0) mg/dL AST (15-37) IU/L ALT (14-63) IU/L Alkaline Phosphatase (46-116) U/L Total Protein (6.4-8.2) g/dL Albumin (3.4-5.0) g/dL Globulin (2.6-4.0) g/dL Albumin/Globulin Ratio (0.9-1.6) TSH 3rd Generation 3.07 (0.36-3.74) uIU/mL Urine Color Urine Appearance Urine pH (5.0-8.0) Ur Specific [place] (1.001-1.035) Urine Protein (NEGATIVE) mg/dL Urine Glucose (UA) (NEGATIVE) mg/dL Urine Ketones (NEGATIVE) mg/dL Urine Occult Blood (NEGATIVE) Urine Nitrite (NEGATIVE) Urine Bilirubin (NEGATIVE) Urine Urobilinogen (<2.0) EU/dL Ur Leukocyte Esterase (NEGATIVE) Meds: Medications Discontinued Medications Generic Name Dose Route Start Last Admin Trade Name Freq PRN Reason Stop Dose Admin Albuterol/Ipratropium Confirm 09/30/18 19:05 Duoneb 3.0-0.5 Mg/3 Ml Administered 09/30/18 19:06 Dose 3 ml .ROUTE .STK-MED ONE Albuterol/Ipratropium 3 ml 09/30/18 19:15 09/30/18 19:28 Duoneb 3.0-0.5 Mg/3 Ml NEB 09/30/18 19:16 3 ml ONETIME ONE Administration Sodium Chloride 1,000 mls @ 999 mls/hr 09/30/18 19:10 09/30/18 19:28 Normal Saline IV 09/30/18 20:10 999 mls/hr STAT ONE Administration Departure - Departure Time of Disposition: 21:45 Disposition: Home, Self-Care 01 Clinical Impression: Atypical chest pain, Hyperventilation Anemia Qualifiers: Anemia type: unspecified type Qualified Code(s): D64.9 - Anemia, unspecified - Discharge Information Instructions: Nonspecific Chest Pain, [id number] Referrals: PCP,None [Primary Care Provider] - Forms: ED Department Discharge - My Orders Last 24 Hours: My Active Orders 09/30/18 19:10 Heart Rate [RC] Click to Edit 09/30/18 19:15 RT Aerosol Therapy [RC] ASDIRECTED - Assessment/Plan Last 24 Hours: My Active Orders 09/30/18 19:10 Heart Rate [RC] Click to Edit 09/30/18 19:15 RT Aerosol Therapy [RC] ASDIRECTED
[2018-09-30 20:08] LABS: CHLORIDE,CL 103 mmol/L (98-107); SODIUM,NA 137 mmol/L (136-145)
[2018-09-30 23:05] VITALS: BP 128/80
== END 2018-09-30 22:55 | disposition home or self-care (01) ==
LOC: MW.ED 19:03
DX: R07.89 Other chest pain (principal); R06.4 Hyperventilation; D64.9 Anemia, unspecified; J44.9 Chronic obstructive pulmonary disease, unspecified; Z88.5 Allergy status to narcotic agent; Z79.899 Other long term (current) drug therapy
CPT/HCPCS: 80053; 81003; 84443; 85025; 96360; 96361; 99285; J7040; J7620-GY

== ENCOUNTER 2019-03-10 05:00 | Inpatient (IN) | payer MEDICAID ==
[2019-03-10] MEDS ORDERED: Sodium Chloride 0.9% 10 ML Syringe FLUSH PRN (05:05)
[2019-03-10] MEDS ORDERED: Citric Acid/Sodium Citrate Solution 30 ML Cup PO ONE (05:05)
[2019-03-10] MEDS ORDERED: Sodium Chloride 0.9% 2.5 ML Syringe FLUSH PRN (05:05)
[2019-03-10] MEDS ORDERED: Sodium Chloride 0.9% 10 ML SDV IV PRN (05:05)
[2019-03-10] MEDS ORDERED: Oxytocin/0.9 % Sodium Chloride 30 UNIT/500 ML BAG IV SCH (05:15)
[2019-03-10] MEDS: Lactated Ringers 1,000 ML IV SCH ×3 (05:25→07:46)
[2019-03-10] MEDS ORDERED: Ondansetron 4 MG/2 ML SDV ONE (07:14)
[2019-03-10] MEDS ORDERED: Octyl 2-Cyanoacrylate 1 Tube ONE (07:36)
[2019-03-10] MEDS ORDERED: Sodium Chloride 0.9% 40 ML ONE (07:42)
[2019-03-10] MEDS ORDERED: Oxytocin/0.9 % Sodium Chloride 30 UNIT/500 ML BAG ONE (07:42)
[2019-03-10] MEDS ORDERED: ceFAZolin 1 GM Vial ONE (07:42)
[2019-03-10] MEDS ORDERED: Citric Acid/Sodium Citrate Solution 30 ML Cup ONE (07:44)
--- NOTE | 2019-03-10 07:46 | PCM.PREANE ---
Preanesthetic Assessment - Anesthesia/Transfusion/Family Hx Anesthesia History: Prior Anesthesia Without Reaction Family History of Anesthesia Reaction: No Transfusion History: No Prior Transfusion(s) - Review of Systems General: No Symptoms Pulmonary: No Symptoms Cardiovascular: No Symptoms Gastrointestinal: No Symptoms Neurological: No Symptoms Other: Reports: None - Physical Assessment NPO Status Date: 03/09/19 Height: 5 ft 9 in Weight: 168.793 kg ASA Class: 3 Mental Status: Alert & Oriented x3 Airway Class: Mallampati = 4 Dentition: Reports: Normal Dentition (Braces) Thyro-Mental Finger Breadths: 3 Mouth Opening Finger Breadths: 3 ROM/Head Extension: Full Lungs: Clear to Auscultation, Normal Respiratory Effort Cardiovascular: Regular Rate, Regular Rhythm - Lab Values: Laboratory Last Values WBC 9.96 K/uL (4.0-11.0) 03/10/19 05:25 RBC 4.81 M/uL (4.30-5.90) 03/10/19 05:25 Hgb 12.7 g/dL (12.0-16.0) 03/10/19 05:25 Hct 39.9 % (36.0-46.0) 03/10/19 05:25 MCV 83.0 fL (80.0-98.0) 03/10/19 05:25 MCH 26.4 pg (27.0-32.0) L 03/10/19 05:25 MCHC 31.8 g/dL (31.0-37.0) 03/10/19 05:25 RDW Std Deviation 67.4 fl (28.0-62.0) H 03/10/19 05:25 RDW Coeff of Moe 22 % (11.0-15.0) H 03/10/19 05:25 Plt Count 287 K/uL (150-400) 03/10/19 05:25 MPV 10.80 fL (7.40-12.00) 03/10/19 05:25 Nucleated RBC % 0.0 /100WBC 03/10/19 05:25 Nucleated RBCs # 0 K/uL 03/10/19 05:25 Blood Type O POSITIVE 03/10/19 05:25 Antibody Screen NEGATIVE 03/10/19 05:25 - Allergies Allergies/Adverse Reactions: Allergies Allergy/AdvReac Type Severity Reaction Status Date / Time morphine Allergy Severe Rash Verified 03/04/19 08:37 - Acknowledgements Anesthesia Type Planned: General Anesthesia, Spinal (NO DURAMORPH) Pt an Appropriate Candidate for the Planned Anesthesia: Yes Alternatives and Risks of Anesthesia Discussed w Pt/Guardian: Yes Pt/Guardian Understands and Agrees with Anesthesia Plan: Yes PreAnesthesia Questionnaire - Past Health History Medical/Surgical History: Denies Medical/Surgical History HEENT History: Reports: None, Other (See Below) Other HEENT History: dental braces Cardiovascular History: Reports: None Respiratory History: Reports: None Gastrointestinal History: Reports: Other (See Below) Other Gastrointestinal History: Gastric Bypass done in [place] on 09/21/2015 Genitourinary History: Reports: None SECRETARIAL TEACHER History: Reports: : 3 Para: 2 LMP (Approximate): Musculoskeletal History: Reports: Fracture Other Musculoskeletal History: R wrist- fracture- plates et screws Neurological History: Reports: None Psychiatric History: Reports: None Endocrine/Metabolic History: Reports: Obesity/BMI 30+ Hematologic History: Reports: Anemia Other Hematologic History: hx iron transfusion Immunologic History: Reports: None Oncologic (Cancer) History: Reports: None Dermatologic History: Reports: None - Infectious Disease History Infectious Disease History: Reports: None - Past Surgical History Head Surgeries/Procedures: Reports: None HEENT Surgical History: Reports: None Cardiovascular Surgical History: Reports: None Respiratory Surgical History: Reports: None GI Surgical History: Reports: Bariatric Procedure Female Surgical History: Reports: Section (2) Other Female Surgeries/Procedures: x2 Endocrine Surgical History: Reports: Thyroidectomy Other Endocrine Surgeries/Procedures: partial thyroidectomy Neurological Surgical History: Reports: None Musculoskeletal Surgical History: Reports: ORIF Other Musculoskeletal Surgeries/Procedures:: Right wrist repair with metal plate Oncologic Surgical History: Reports: None Dermatological Surgical History: Reports: None - SUBSTANCE USE Smoking Status *Q: Never Smoker Tobacco Use Within Last Twelve Months: No Second Hand Smoke Exposure: No Recreational Drug Use History: No - HOME MEDS Home Medications: Home Meds Ferrous Sulfate [Iron] 1 tab PO DAILY 03/04/19 [History] PNV95/Ferrous Fumarate/FA [ Vitamin Tablet] 1 tab PO DAILY 03/04/19 [ History] - CURRENT (IN HOUSE) MEDS Current Meds: Current Medications Cefazolin Sodium/Dextrose 3 gm (/ Premix) 75 mls @ 100 mls/hr IV ONETIME ONE Stop: 03/10/19 08:14 Lactated Ringer's (Ringers, Lactated) 1,000 mls @ 500 mls/hr IV BOLUS BARRETT Last Admin: 03/10/19 06:36 Dose: 500 mls/hr Oxytocin/Sodium Chloride (Oxytocin 30 Unit/500 Ml-Ns) 30 unit in 500 mls @ 250 mls/hr IV TITRATE BARRETT Sodium Chloride (Saline Flush) 10 ml FLUSH ASDIRECTED PRN PRN Reason: Keep Vein Open Sodium Chloride (Saline Flush) 2.5 ml FLUSH ASDIRECTED PRN PRN Reason: Keep Vein Open Sodium Chloride (Normal Saline) 10 ml IV ASDIRECTED PRN PRN Reason: IV Use Discontinued Medications Citric Acid/Sodium Citrate (Bicitra Solution) 30 ml PO ONETIME ONE Stop: 03/10/19 05:06 Octyl Cyanoacrylate (Dermabond Advance) Confirm Administered Dose 1 applic .ROUTE .STK-MED ONE Stop: 03/10/19 07:37 Ondansetron HCl (Zofran) Confirm Administered Dose 4 mg .ROUTE .STK-MED ONE Stop: 03/10/19 07:15
[2019-03-10] MEDS ORDERED: ePHEDrine 50 MG/ML SDV ONE (08:09)
[2019-03-10] MEDS ORDERED: Glycopyrrolate 0.2 MG/ML SDV ONE (08:09)
[2019-03-10] MEDS ORDERED: Phenylephrine/Normal Saline 100 MCG/ML 10 ML Syringe ONE (08:17)
[2019-03-10] MEDS ORDERED: Ondansetron 4 MG/2 ML SDV IVPUSH ONE (08:50)
[2019-03-10] MEDS ORDERED: Labetalol 100 MG/20 ML MDV IVPUSH PRN (08:50)
[2019-03-10] MEDS ORDERED: Metoclopramide 10 MG/2 ML SDV IVPUSH ONE (08:50)
[2019-03-10] MEDS ORDERED: Midazolam 1 MG/ML 2 ML SDV ONE (09:12)
[2019-03-10] MEDS ORDERED: Bupivacaine 0.5% 30 ML SDV ONE (09:25)
[2019-03-10] MEDS ORDERED: fentaNYL 100 MCG/2 ML SDV ONE ×2 (09:25→10:07)
[2019-03-10] MEDS ORDERED: Bisacodyl 10 MG Supp RECTAL PRN (10:03)
[2019-03-10] MEDS ORDERED: Lanolin 100% Cream 7 GM Tube TOP PRN (10:03)
[2019-03-10] MEDS ORDERED: diphenhydrAMINE 50 MG/ML SDV IVPUSH PRN (10:03)
[2019-03-10] MEDS ORDERED: Ondansetron 4 MG/2 ML SDV IVPUSH PRN (10:03)
[2019-03-10] MEDS ORDERED: fentaNYL 100 MCG/2 ML SDV IVPUSH PRN (10:05)
[2019-03-10] MEDS ORDERED: Lactated Ringers 1,000 ML IV SCH (10:15)
[2019-03-10] MEDS: Ketorolac 30 MG/ML SDV IVPUSH SCH ×3 (10:37→22:47)
[2019-03-10] MEDS ORDERED: Butorphanol 1 MG/ML SDV IVPUSH PRN (10:38)
--- NOTE | 2019-03-10 10:43 | PCM.OPNOTE ---
- General Post-Op/Procedure Note Date of Surgery/Procedure: 03/10/19 Operative Procedure(s): Tertiary Lower transverse Findings: Live male delivered at 841am , 8/9 weight 3800g Pre Op Diagnosis: 29 yo @ 39w0d for Tertiary LTCS Post-Op Diagnosis: 29 yo @ 39w0d for Tertiary LTCS Anesthesia Technique: Spinal Primary Surgeon: Mark Nolasco Tandem Mill Roller: mary Pathology: none Fluid Replacement, Intraop: 3,400 Output, Urine Amount: 200 EBL in mLs: 500 Complications: None Condition: Good Free Text/Narrative:: Intake & Output 03/09/19 03/10/19 03/10/19 22:59 06:59 14:59 Output Total 300 Balance -300
--- NOTE | 2019-03-10 10:58 | PCM.POSTAN ---
POST ANESTHESIA ASSESSMENT - MENTAL STATUS Mental Status: Alert, Oriented - VITAL SIGNS Vital Signs: Last Vital Signs Temp 97.3 F 03/10/19 09:55 Pulse 80 03/10/19 10:40 Resp 15 03/10/19 10:40 BP 149/84 H 03/10/19 10:40 Pulse Ox 100 03/10/19 10:40 - RESPIRATORY Respiratory Status: Respiratory Rate WNL, Airway Patent, O2 Saturation Stable - CARDIOVASCULAR CV Status: Pulse Rate WNL, Blood Pressure Stable - GASTROINTESTINAL GI Status: No Symptoms - PAIN Pain Score: 4 - POST OP HYDRATION Hydration Status: Adequate & Stable - OBSERVATIONS Free Text/Narrative:: VSS, pt resting.
--- NOTE | 2019-03-10 11:42 | OR ---
SURGEON: DWIGHT ALCOCER DATE OF PROCEDURE: 03/10/2019 PREOPERATIVE DIAGNOSES: 29-year-old G4, P1-1-0-2, at 39 weeks 0 days for tertiary section. POSTOPERATIVE DIAGNOSIS: 29-year-old G4, P1-1-0-2, at 39 weeks 0 days for tertiary section. PROCEDURE: Tertiary lower transverse segment section. IV FLUIDS: 3400. ESTIMATED BLOOD LOSS: 500. URINE OUTPUT: 200. NOTABLE FINDING: A live male delivered at 8:41 a.m. score is 8 and 9, weight is 3800 g, and delivery was assisted with a kiwi vacuum device. DESCRIPTION OF PROCEDURE: The patient was taken to the operating room where spinal anesthesia was performed without difficulty. She was prepared and draped in the dorsal supine position with leftward tilt. A lower transverse abdominal incision was made about 5 cm from the pubic symphysis. The incision was carried down to the fascia with the scalpel. Hemostasis was noted in the fascia and was controlled in the fascia. The fascia was incised and extended laterally. The fascia was superiorly and inferiorly from the rectus muscle. The rectus muscle was in the midline all the way to the level of the pubic symphysis. The peritoneum was then entered in and was extended with manual expansion of the peritoneum. The Bret retractor was placed in to expose the lower uterine segment. A incision was made on the lower uterine segment with a scalpel , it was extended with the bandage scissors. Membrane was ruptured. The fetus was in cephalic position. The vacuum was placed at the occiput at the flexion point. With abdominal pressure, the infant was delivered. The cord was around the neck, which was reduced. The cord was clamped and cut. The was handed over to the awaiting brooch maker novelty. The cord blood gases were obtained and the cord blood was also obtained. Then, the placenta was then delivered with separation of the plane and manual massage of the fundus. The uterus was then cleaned with moist laparotomy sponges. Uterus was then sutured in one layer with 0 Vicryl without any difficulty. The hemostasis was noted. Right and left Tubes and ovaries were inspected and was normal. The gutters were cleaned with moist laparotomy sponges. The peritoneum was then approximated with 2-0 Vicryl. The rectus muscle was also approximated with 2-0 Vicryl, and the fascia was closed with 0 Vicryl in a continuous fashion. The subcutaneous fat was closed in two layer with 3-0 plain gut. The skin was closed with 4-0 Monocryl on a Arnav needle. The Steri-Strip was approximated and the Zan dressing was placed. All instrument and pad counts were correct x2. The patient tolerated the procedure well and was taken to labor and Delivery room in stable condition. SHANE BYRNE /[id number]
[2019-03-10] MEDS ORDERED: Oxytocin/Lactated Ringers 30 UNIT/500 ML BAG IV ONE (12:10)
[2019-03-10] MEDS: Acetaminophen 1,000 MG in Premix Bag 1 BAG IV SCH ×2 (12:29→19:38)
[2019-03-10] MEDS: Metoclopramide 10 MG/2 ML SDV IVPUSH SCH ×2 (12:54→19:20)
[2019-03-10] MEDS: Enoxaparin 40 MG/0.4 ML Syringe SUBCUT SCH (18:11)
[2019-03-10] MEDS: Docusate Sodium 100 MG Cap PO SCH (23:52)
[2019-03-11] MEDS: Metoclopramide 10 MG/2 ML SDV IVPUSH SCH (03:02)
[2019-03-11] MEDS: Acetaminophen 1,000 MG in Premix Bag 1 BAG IV SCH (03:02)
[2019-03-11] MEDS: Ketorolac 30 MG/ML SDV IVPUSH SCH ×2 (04:11→10:12)
[2019-03-11] MEDS: Docusate Sodium 100 MG Cap PO SCH (10:19)
[2019-03-11] MEDS: Acetaminophen/oxyCODONE 325-5 MG Tab PO PRN ×2 (11:27→19:48)
[2019-03-11] MEDS: Ibuprofen 800 MG Tab PO PRN (18:27)
--- NOTE | 2019-03-11 18:27 | PCM.PNPP ---
- General Info Date of Service: 03/11/19 Functional Status: Reports: Pain Controlled, Tolerating Diet, Ambulating, Urinating - Review of Systems General: Reports: No Symptoms HEENT: Reports: No Symptoms Pulmonary: Reports: No Symptoms Cardiovascular: Reports: No Symptoms Gastrointestinal: Reports: No Symptoms Genitourinary: Reports: No Symptoms Musculoskeletal: Reports: No Symptoms Skin: Reports: No Symptoms Neurological: Reports: No Symptoms Psychiatric: Reports: No Symptoms - General Info Date of Service: 03/11/19 - Patient Data Vital Signs - Most Recent: Last Vital Signs Temp 36.6 C 03/11/19 18:13 Pulse 92 03/11/19 18:13 Resp 20 03/11/19 18:13 BP 116/74 03/11/19 18:13 Pulse Ox 97 03/11/19 12:00 Weight - Most Recent: 168.793 kg Lab Results - Last 24 Hours: Laboratory Results - last 24 hr 03/11/19 Range/Units 04:45 Hgb 10.2 L (12.0-16.0) g/dL Hct 32.1 L (36.0-46.0) % Med Orders - Current: Current Medications Bisacodyl (Dulcolax) 10 mg RECTAL ONETIME PRN PRN Reason: Constipation Butorphanol Tartrate (Stadol) 2 mg IVPUSH Q6H PRN PRN Reason: Abdominal Pain Diphenhydramine HCl (Benadryl) 25 mg IVPUSH Q6H PRN PRN Reason: Itching or Nausea Docusate Sodium (Colace) 100 mg PO BID [facility] Last Admin: 03/11/19 10:19 Dose: Not Given Emollient Ointment (Lansinoh Hpa) 0 gm TOP ASDIRECTED PRN PRN Reason: Sore Nipples Enoxaparin Sodium (Lovenox) 40 mg SUBCUT Q24H [facility] Last Admin: 03/10/19 18:11 Dose: 40 mg Fentanyl (Sublimaze) 50 mcg IVPUSH Q5M PRN PRN Reason: Pain Last Admin: 03/10/19 10:10 Dose: 50 mcg Lactated Ringer's (Ringers, Lactated) 1,000 mls @ 500 mls/hr IV BOLUS [facility] Last Admin: 03/10/19 07:46 Dose: 500 mls/hr Oxytocin/Sodium Chloride (Oxytocin 30 Unit/500 Ml-Ns) 30 unit in 500 mls @ 250 mls/hr IV TITRATE [facility] Last Admin: 03/10/19 12:27 Dose: 999 mls/hr Lactated Ringer's (Ringers, Lactated) 1,000 mls @ 125 mls/hr IV ASDIRECTED [facility] Last Admin: 03/10/19 12:25 Dose: 125 mls/hr Ibuprofen (Motrin) 800 mg PO Q8H PRN PRN Reason: mild pain or fever Ondansetron HCl (Zofran) 4 mg IVPUSH Q4H PRN PRN Reason: Nausea/Vomiting Oxycodone/Acetaminophen (Percocet 325-5 Mg) 1 tab PO Q4H PRN PRN Reason: Pain (moderate 4-6) Last Admin: 03/11/19 11:27 Dose: 1 tab Oxycodone/Acetaminophen (Percocet 325-5 Mg) 2 tab PO Q4H PRN PRN Reason: Pain (moderate 4-6) Sodium Chloride (Saline Flush) 10 ml FLUSH ASDIRECTED PRN PRN Reason: Keep Vein Open Sodium Chloride (Saline Flush) 2.5 ml FLUSH ASDIRECTED PRN PRN Reason: Keep Vein Open Sodium Chloride (Normal Saline) 10 ml IV ASDIRECTED PRN PRN Reason: IV Use Discontinued Medications Bupivacaine HCl (Marcaine 0.5%) Confirm Administered Dose 30 ml .ROUTE .STK-MED ONE Stop: 03/10/19 09:26 Last Admin: 03/10/19 13:22 Dose: Not Given Cefazolin Sodium (Ancef) Confirm Administered Dose 3 gm .ROUTE .STK-MED ONE Stop: 03/10/19 07:43 Citric Acid/Sodium Citrate (Bicitra Solution) 30 ml PO ONETIME ONE Stop: 03/10/19 05:06 Last Admin: 03/10/19 07:46 Dose: 30 ml Citric Acid/Sodium Citrate (Bicitra Solution) Confirm Administered Dose 30 ml .ROUTE .STK-MED ONE Stop: 03/10/19 07:45 Last Admin: 03/10/19 12:12 Dose: Not Given Ephedrine Sulfate (Ephedrine Sulfate) Confirm Administered Dose 50 mg .ROUTE .STK-MED ONE Stop: 03/10/19 08:10 Fentanyl (Sublimaze) Confirm Administered Dose 100 mcg .ROUTE .STK-MED ONE Stop: 03/10/19 09:26 Fentanyl (Sublimaze) Confirm Administered Dose 100 mcg .ROUTE .[facility]-MED ONE Stop: 03/10/19 10:08 Last Admin: 03/10/19 13:23 Dose: Not Given Glycopyrrolate (Robinul) Confirm Administered Dose 0.4 mg .ROUTE .[facility]-MED ONE Stop: 03/10/19 08:10 Cefazolin Sodium/Dextrose 3 gm (/ Premix) 75 mls @ 100 mls/hr IV ONETIME ONE Stop: 03/10/19 08:14 Last Admin: 03/10/19 13:22 Dose: Not Given Sodium Chloride (Normal Saline) Confirm Administered Dose 40 mls @ as directed .ROUTE .[facility]-MED ONE Stop: 03/10/19 07:43 Oxytocin/Sodium Chloride (Oxytocin 30 Unit/500 Ml-Ns) Confirm Administered Dose 30 unit in 500 mls @ as directed .ROUTE .[facility]-MED ONE Stop: 03/10/19 07:43 Acetaminophen 1,000 mg/ Premix 100 mls @ 400 mls/hr IV Q8H [facility] Last Admin: 03/11/19 03:02 Dose: 400 mls/hr Ketorolac Tromethamine (Toradol) 30 mg IVPUSH Q6H [facility] Stop: 03/11/19 10:16 Last Admin: 03/11/19 10:12 Dose: 30 mg Labetalol HCl (Normodyne) 5 mg IVPUSH Q4H PRN; Protocol PRN Reason: Hypertension Stop: 03/11/19 08:53 Metoclopramide HCl (Reglan) 10 mg IVPUSH ONETIME ONE Stop: 03/10/19 08:51 Last Admin: 03/10/19 19:57 Dose: 10 mg Metoclopramide HCl (Reglan) 10 mg IVPUSH Q8H [facility] Last Admin: 03/11/19 03:02 Dose: 10 mg Midazolam HCl (Versed 1 Mg/Ml) Confirm Administered Dose 2 mg .ROUTE .ST-MED ONE Stop: 03/10/19 09:13 Octyl Cyanoacrylate (Dermabond Advance) Confirm Administered Dose 1 applic .ROUTE .[facility]-MED ONE Stop: 03/10/19 07:37 Ondansetron HCl (Zofran) Confirm Administered Dose 4 mg .ROUTE .STK-MED ONE Stop: 03/10/19 07:15 Ondansetron HCl (Zofran) 4 mg IVPUSH ONETIME ONE Stop: 03/10/19 08:51 Last Admin: 03/10/19 13:22 Dose: Not Given Phenylephrine HCl (Phenylephrine In Ns 100 Mcg/Ml) Confirm Administered Dose 1 mg .ROUTE .STK-MED ONE Stop: 03/10/19 08:18 - Interaction Support Person: Friend - Recovery Exam Fundal Tone: Firm Fundal Level: At Umbilicus Fundal Placement: Midline Lochia Amount: Small Lochia Color: Rubra/Red Perineum Description: Intact, Minimal Bruising/Swelling Episiotomy/Laceration: None Bladder Status: Voiding Urinary Elimination: Voided - Exam HEENT: Pupils Equal Neck: Supple Lungs: Clear to Auscultation, Normal Respiratory Effort Cardiovascular: Regular Rate GI/Abdominal Exam: Normal Bowel Sounds Extremities: Normal Inspection Wound/Incisions: Other (Mateus dressing with blood stained , dry , mateus working in good condition ) - Problem List & Annotations (1) delivery delivered SNOMED Code(s): 587307152 Code(s): O82 - ENCOUNTER FOR DELIVERY WITHOUT INDICATION Status: Acute Current Visit: Yes - Problem List Review Problem List Initiated/Reviewed/Updated: Yes - My Orders Last 24 Hours: My Active Orders 03/10/19 18:00 Enoxaparin [Lovenox] 40 mg SUBCUT Q24H 03/10/19 21:00 Docusate Sodium [Colace] 100 mg PO BID 03/11/19 16:16 Ibuprofen [Motrin] 800 mg PO Q8H PRN - Assessment Assessment:: 29 yo P3 s/p tertiary LTCS , POD1 , stable , ambulating, voiding and tolerating regular diet , Normal lochia , fair pain control - Plan Plan:: Routine care Incentive spirometry Pain control as needed Venodynes in bed Lovenox 40mg daily
[2019-03-11] MEDS: Enoxaparin 40 MG/0.4 ML Syringe SUBCUT SCH (18:28)
[2019-03-12] MEDS: Acetaminophen/oxyCODONE 325-5 MG Tab PO PRN ×3 (02:40→13:01)
[2019-03-12] MEDS: Ibuprofen 800 MG Tab PO PRN (02:41)
[2019-03-12 08:36] VITALS: BP 131/73; PULSE 82
--- NOTE | 2019-03-12 09:09 | PCM.PNPP ---
- General Info Date of Service: 03/12/19 Subjective Update: 29yo P3 X 3 , denies any complains , she has good pain control Normal lochia , bottle feeding Functional Status: Reports: Pain Controlled, Tolerating Diet, Ambulating, Urinating - Review of Systems General: Reports: No Symptoms HEENT: Reports: No Symptoms Pulmonary: Reports: No Symptoms Cardiovascular: Reports: No Symptoms Gastrointestinal: Reports: No Symptoms Genitourinary: Reports: No Symptoms Musculoskeletal: Reports: No Symptoms Skin: Reports: No Symptoms Neurological: Reports: No Symptoms Psychiatric: Reports: No Symptoms - General Info Date of Service: 03/12/19 - Patient Data Vital Signs - Most Recent: Last Vital Signs Temp 36.6 C 03/12/19 08:00 Pulse 82 03/12/19 08:00 Resp 19 03/12/19 08:00 BP 131/73 03/12/19 08:00 Pulse Ox 97 03/12/19 08:00 Weight - Most Recent: 168.793 kg Med Orders - Current: Current Medications Bisacodyl (Dulcolax) 10 mg RECTAL ONETIME PRN PRN Reason: Constipation Butorphanol Tartrate (Stadol) 2 mg IVPUSH Q6H PRN PRN Reason: Abdominal Pain Diphenhydramine HCl (Benadryl) 25 mg IVPUSH Q6H PRN PRN Reason: Itching or Nausea Docusate Sodium (Colace) 100 mg PO BID [facility] Last Admin: 03/11/19 10:19 Dose: Not Given Emollient Ointment (Lansinoh Hpa) 0 gm TOP ASDIRECTED PRN PRN Reason: Sore Nipples Enoxaparin Sodium (Lovenox) 40 mg SUBCUT Q24H [facility] Last Admin: 03/11/19 18:28 Dose: 40 mg Fentanyl (Sublimaze) 50 mcg IVPUSH Q5M PRN PRN Reason: Pain Last Admin: 03/10/19 10:10 Dose: 50 mcg Lactated Ringer's (Ringers, Lactated) 1,000 mls @ 500 mls/hr IV BOLUS [facility] Last Admin: 03/10/19 07:46 Dose: 500 mls/hr Oxytocin/Sodium Chloride (Oxytocin 30 Unit/500 Ml-Ns) 30 unit in 500 mls @ 250 mls/hr IV TITRATE [facility] Last Admin: 03/10/19 12:27 Dose: 999 mls/hr Lactated Ringer's (Ringers, Lactated) 1,000 mls @ 125 mls/hr IV ASDIRECTED [facility] Last Admin: 03/10/19 12:25 Dose: 125 mls/hr Ibuprofen (Motrin) 800 mg PO Q8H PRN PRN Reason: mild pain or fever Last Admin: 03/12/19 02:41 Dose: 800 mg Ondansetron HCl (Zofran) 4 mg IVPUSH Q4H PRN PRN Reason: Nausea/Vomiting Oxycodone/Acetaminophen (Percocet 325-5 Mg) 1 tab PO Q4H PRN PRN Reason: Pain (moderate 4-6) Last Admin: 03/11/19 19:48 Dose: 1 tab Oxycodone/Acetaminophen (Percocet 325-5 Mg) 2 tab PO Q4H PRN PRN Reason: Pain (moderate 4-6) Last Admin: 03/12/19 07:29 Dose: 2 tab Sodium Chloride (Saline Flush) 10 ml FLUSH ASDIRECTED PRN PRN Reason: Keep Vein Open Sodium Chloride (Saline Flush) 2.5 ml FLUSH ASDIRECTED PRN PRN Reason: Keep Vein Open Sodium Chloride (Normal Saline) 10 ml IV ASDIRECTED PRN PRN Reason: IV Use Discontinued Medications Bupivacaine HCl (Marcaine 0.5%) Confirm Administered Dose 30 ml .ROUTE .STK-MED ONE Stop: 03/10/19 09:26 Last Admin: 03/10/19 13:22 Dose: Not Given Cefazolin Sodium (Ancef) Confirm Administered Dose 3 gm .ROUTE .STK-MED ONE Stop: 03/10/19 07:43 Citric Acid/Sodium Citrate (Bicitra Solution) 30 ml PO ONETIME ONE Stop: 03/10/19 05:06 Last Admin: 03/10/19 07:46 Dose: 30 ml Citric Acid/Sodium Citrate (Bicitra Solution) Confirm Administered Dose 30 ml .ROUTE .STK-MED ONE Stop: 03/10/19 07:45 Last Admin: 03/10/19 12:12 Dose: Not Given Ephedrine Sulfate (Ephedrine Sulfate) Confirm Administered Dose 50 mg .ROUTE .STK-MED ONE Stop: 03/10/19 08:10 Fentanyl (Sublimaze) Confirm Administered Dose 100 mcg .ROUTE .ST-MED ONE Stop: 03/10/19 09:26 Fentanyl (Sublimaze) Confirm Administered Dose 100 mcg .ROUTE .[facility]-MED ONE Stop: 03/10/19 10:08 Last Admin: 03/10/19 13:23 Dose: Not Given Glycopyrrolate (Robinul) Confirm Administered Dose 0.4 mg .ROUTE .[facility]-MED ONE Stop: 03/10/19 08:10 Cefazolin Sodium/Dextrose 3 gm (/ Premix) 75 mls @ 100 mls/hr IV ONETIME ONE Stop: 03/10/19 08:14 Last Admin: 03/10/19 13:22 Dose: Not Given Sodium Chloride (Normal Saline) Confirm Administered Dose 40 mls @ as directed .ROUTE .[facility]-MED ONE Stop: 03/10/19 07:43 Oxytocin/Sodium Chloride (Oxytocin 30 Unit/500 Ml-Ns) Confirm Administered Dose 30 unit in 500 mls @ as directed .ROUTE .[facility] ONE Stop: 03/10/19 07:43 Acetaminophen 1,000 mg/ Premix 100 mls @ 400 mls/hr IV Q8H [facility] Last Admin: 03/11/19 03:02 Dose: 400 mls/hr Ketorolac Tromethamine (Toradol) 30 mg IVPUSH Q6H [facility] Stop: 03/11/19 10:16 Last Admin: 03/11/19 10:12 Dose: 30 mg Labetalol HCl (Normodyne) 5 mg IVPUSH Q4H PRN; Protocol PRN Reason: Hypertension Stop: 03/11/19 08:53 Metoclopramide HCl (Reglan) 10 mg IVPUSH ONETIME ONE Stop: 03/10/19 08:51 Last Admin: 03/10/19 19:57 Dose: 10 mg Metoclopramide HCl (Reglan) 10 mg IVPUSH Q8H [facility] Last Admin: 03/11/19 03:02 Dose: 10 mg Midazolam HCl (Versed 1 Mg/Ml) Confirm Administered Dose 2 mg .ROUTE .STK-MED ONE Stop: 03/10/19 09:13 Octyl Cyanoacrylate (Dermabond Advance) Confirm Administered Dose 1 applic .ROUTE .[facility]-MED ONE Stop: 03/10/19 07:37 Ondansetron HCl (Zofran) Confirm Administered Dose 4 mg .ROUTE .STK-MED ONE Stop: 03/10/19 07:15 Ondansetron HCl (Zofran) 4 mg IVPUSH ONETIME ONE Stop: 03/10/19 08:51 Last Admin: 03/10/19 13:22 Dose: Not Given Phenylephrine HCl (Phenylephrine In Ns 100 Mcg/Ml) Confirm Administered Dose 1 mg .ROUTE .STK-MED ONE Stop: 03/10/19 08:18 - Interaction Support Person: Friend - Recovery Exam Fundal Tone: Firm Fundal Level: 1 Fingerbreadths Below Umbilicus Fundal Placement: Midline Lochia Amount: Scant Lochia Color: Brownish Perineum Description: Intact, Minimal Bruising/Swelling Episiotomy/Laceration: None Bladder Status: Voiding Urinary Elimination: Voided - Exam General: Alert HEENT: Pupils Equal Neck: Supple Lungs: Clear to Auscultation Cardiovascular: Regular Rate, Regular Rhythm GI/Abdominal Exam: Normal Bowel Sounds Extremities: Normal Inspection Wound/Incisions: Dressing Dry and Intact Neurological: No New Focal Deficit Psy/Mental Status: Alert - Problem List & Annotations (1) delivery delivered SNOMED Code(s): 766017091 Code(s): O82 - ENCOUNTER FOR DELIVERY WITHOUT INDICATION Status: Acute Current Visit: Yes - Problem List Review Problem List Initiated/Reviewed/Updated: Yes - My Orders Last 24 Hours: My Active Orders 03/11/19 16:16 Ibuprofen [Motrin] 800 mg PO Q8H PRN - Assessment Assessment:: 29 yo P3 s/p tertiary LTCS , POD2 , stable , ambulating, voiding and tolerating regular diet , Normal lochia , good pain control - Plan Plan:: Routine care Discharge home
[2019-03-12] MEDS: Docusate Sodium 100 MG Cap PO SCH ×2 (10:15→13:03)
== END 2019-03-12 13:20 | disposition home or self-care (01) | DRG 788 ==
LOC: MW.OB 05:00 → OBSVTOIN 05:05 → MW.OB 14:25
PROVIDERS: ADMIT Obstetrics & Gynecology; ATTEND Obstetrics & Gynecology
PROC: 10D00Z1 Extraction of Products of Conception, Low, Open Approach (ICD-10-PCS; principal; 2019-03-10)
DX: O34.211 Maternal care for low transverse scar from previous cesarean delivery (principal); Z37.0 Single live birth; O99.214 Obesity complicating childbirth; E66.9 Obesity, unspecified; O99.02 Anemia complicating childbirth; D64.9 Anemia, unspecified; Z3A.39 39 weeks gestation of pregnancy
CPT/HCPCS: 01961; 36415; 59025; 82803; 85014; 85018; 85027; 86850; 86900; 86901; A9270-GY; J0131; J0690; J1650; J1885; J2250; J2370; J2405; J2590; J2765; J3010; J3490; J7120

== ENCOUNTER 2019-03-17 04:10 | Emergency (ER) | payer MEDICAID ==
[2019-03-17] MEDS ORDERED: Sodium Chloride 0.9% 10 ML Syringe FLUSH PRN (04:29)
[2019-03-17] MEDS ORDERED: Ondansetron 4 MG/2 ML SDV IVPUSH ONE (04:29)
[2019-03-17] MEDS ORDERED: Ketorolac 30 MG/ML SDV IVPUSH ONE (04:29)
[2019-03-17] MEDS ORDERED: Sodium Chloride 0.9% 1,000 ML IV ONE (04:29)
[2019-03-17] MEDS ORDERED: Sodium Chloride 0.9% 2.5 ML Syringe FLUSH PRN (04:29)
--- NOTE | 2019-03-17 04:36 | EDM.PDOC ---
ED HPI GENERAL MEDICAL PROBLEM - General Chief Complaint: Abdominal Pain Stated Complaint: RECENT -- CLOTTING AND PAIN Time Seen by Provider: 03/17/19 04:16 - History of Present Illness INITIAL COMMENTS - FREE TEXT/NARRATIVE: HISTORY AND PHYSICAL: History of present illness: The patient is a 29-year-old female who presents with complaints of sudden onset of blood and clots with urination and right-sided abdominal pain which originates high on the right and travels down to the right lower quadrant that started several hours ago. The patient tells me she is not breast-feeding and bottle feeding her and she has had no complications post and her lochia was very light and it has since stopped and she has had minimal incisional pain and says that her dressing from her has not had any drainage or staining. She says that she has been eating and drinking normally without fever chills nausea vomiting diarrhea. She says that since this discomfort and blood in the urine started she has had urgency and frequency of urination with burning and pain with urination and suprapubic pain. The patient denies any bleeding in her stools or blood per rectum and says that since this started every time she urinates she sees blood clots from her urine and she does not believe it is from her vagina. She put a pad on but she is not having any bleeding in between urination And she had no bleeding on her pad or in her underwear at home nor does she have that here. The patient has been using her ibuprofen that she was prescribed for after her for pain management and she does have [place] at home for pain management but she did not take any this evening. The patient says that she has had normal bowel movements and is not seeing any blood or clots in her stools nor is she any blood per rectum. The patient initially told me that she had never had a kidney stone or a bladder infection before but later told nursing that she did have a kidney stone when she was 17 years old and her pain was mostly in her back and flank and this pain is very different for her. Review of systems: As per history of present illness and below otherwise all systems reviewed and negative. Past medical history: As per history of present illness and as reviewed below otherwise noncontributory. Surgical history: As per history of present illness and as reviewed below otherwise noncontributory. Social history: No reported history of drug or alcohol abuse. Family history: As per history of present illness and as reviewed below otherwise noncontributory. Physical exam: General: Well-developed well-nourished obese female who is nontoxic and ambulated into the ED. Vital signs were noted by me HEENT: Atraumatic, normocephalic, negative for conjunctival pallor or scleral icterus, mucous membranes moist, throat clear, neck supple, nontender, trachea midline. Lungs: Clear to auscultation, breath sounds equal bilaterally, chest nontender. Heart: S1S2, regular rate and rhythm no overt murmurs Abdomen: Soft, nondistended, there is some mild suprapubic tenderness and mild right-sided abdominal tenderness without any focal area of discomfort and no rebound or guarding. Bowel sounds are hypoactive. Negative for masses or hepatosplenomegaly. Negative for costovertebral tenderness. At the lower abdomen /pelvic area there is a horizontal [facility] dressing in place which is clean and dry without any drainage or staining and there is no shahana-incisional tenderness swelling or erythema appreciated. Pelvis: Stable nontender. Genitourinary: on visual inspection of the patient's underwear and pad there is no blood seen and on visual inspection of the perineum there is no blood or clots visualized. On speculum exam seeing the cervix is very challenging due to the body habitus of this patient and her ability to tolerate the exam but there is a small amount blood in the vaginal vault near the cervix and the cervix appears to be closed. There was no gross bleeding or trickling of blood per os nor any clots in the vault. On bimanual exam which was done gently the uterus does not feel boggy and there is mild tenderness diffusely which is not out of proportion to her posterior state. Rectal: Deferred. Extremities: Atraumatic, negative for cords or calf pain. Neurovascular unremarkable. Neuro: Awake, alert, oriented. Cranial nerves II through XII unremarkable. Cerebellum unremarkable. Motor and sensory unremarkable throughout. Exam nonfocal. Diagnostics: CBC CMP UA with reflex Therapeutics: IV fluids Toradol Zofran Percocet Patient urinated with a prevoid here in the ED for a sample. Urine was examined by nursing and there was no evidence of any clots and there was a few specks of blood on the toilet paper and the urine overall looks relatively clear of blood. Sample was sent to the lab 0520: Case was discussed with Dr. wallis and she would prefer CT scan of the abdomen and pelvis with contrast rather than ultrasound. 0628: Case d/w Dr Wallis; CT scan reveals no acute abnormality or expiration for the patient's pain. The patient has an appointment later today this afternoon for postop follow-up which we advised her to keep and advised the patient to use her ibuprofen and Percocet for pain management. Impression: Right lower abdominal pain status post , etiology unclear stable Definitive disposition and diagnosis as appropriate pending reevaluation and review of above. Treatments [employer]: Reports: NSAIDS Right side abdomen Pain Score (Numeric/FACES): 8 - Related Data Allergies Allergy/AdvReac Type Severity Reaction Status Date / Time morphine Allergy Severe Rash Verified 03/17/19 04:22 Home Meds: Home Meds Acetaminophen/oxyCODONE [Percocet 325-5 MG] 1 - 2 tab PO Q4H PRN 5 Days #20 tablet 03/11/19 [Rx] Ibuprofen [Motrin] 800 mg PO Q8H PRN 5 Days #30 tablet 03/11/19 [Rx] Past Medical History - Past Health History Medical/Surgical History: Denies Medical/Surgical History HEENT History: Reports: Other (See Below) Other HEENT History: dental braces Cardiovascular History: Reports: None Respiratory History: Reports: None Gastrointestinal History: Reports: Other (See Below) Other Gastrointestinal History: Gastric Bypass done in [place] on 09/21/2015 Genitourinary History: Reports: None 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: Musculoskeletal History: Reports: Fracture Other Musculoskeletal History: R wrist- fracture- plates et screws Neurological History: Reports: None Psychiatric History: Reports: None Endocrine/Metabolic History: Reports: Obesity/BMI 30+ Hematologic History: Reports: Anemia Other Hematologic History: hx iron transfusion Immunologic History: Reports: None Oncologic (Cancer) History: Reports: None Dermatologic History: Reports: None - Infectious Disease History Infectious Disease History: Reports: None - Past Surgical History Head Surgeries/Procedures: Reports: None HEENT Surgical History: Reports: None Cardiovascular Surgical History: Reports: None Respiratory Surgical History: Reports: None GI Surgical History: Reports: Bariatric Procedure Female Surgical History: Reports: Section Other Female Surgeries/Procedures: x2 Endocrine Surgical History: Reports: Thyroidectomy Other Endocrine Surgeries/Procedures: partial thyroidectomy Neurological Surgical History: Reports: None Musculoskeletal Surgical History: Reports: ORIF Other Musculoskeletal Surgeries/Procedures:: Right wrist repair with metal plate Oncologic Surgical History: Reports: None Dermatological Surgical History: Reports: None Social & Family History - Family History Family Medical History: Noncontributory Cardiac: Reports: None Respiratory: Reports: None GI: Reports: None Psychiatric: Reports: None Endocrine/Metabolic: Reports: None Hematologic: Reports: None - Tobacco Use Smoking Status *Q: Never Smoker - Caffeine Use Caffeine Use: Reports: Coffee, Soda - Recreational Drug Use Recreational Drug Use: No ED ROS GENERAL - Review of Systems Review Of Systems: ROS reveals no pertinent complaints other than HPI. ED EXAM, GENERAL - Physical Exam Exam: See Below (See dictation) Course - Vital Signs Last Recorded V/S: Last Vital Signs Temp 36.5 C 03/17/19 06:19 Pulse 78 03/17/19 06:19 Resp 18 03/17/19 06:19 BP 113/60 03/17/19 06:19 Pulse Ox 98 03/17/19 06:19 - Orders/Labs/Meds Orders: Active Orders 24 hr Category Date Time Status Sodium Chloride 0.9% [Saline Flush] Med 03/17/19 04:29 Active 10 ml FLUSH ASDIRECTED PRN Sodium Chloride 0.9% [Saline Flush] Med 03/17/19 04:29 Active 2.5 ml FLUSH ASDIRECTED PRN Saline Lock Insert [OM.PC] Stat Oth 03/17/19 04:28 Ordered Medication Orders Sodium Chloride (Saline Flush) 10 ml FLUSH ASDIRECTED PRN PRN Reason: Keep Vein Open Sodium Chloride (Saline Flush) 2.5 ml FLUSH ASDIRECTED PRN PRN Reason: Keep Vein Open Labs: Laboratory Tests 03/17/19 03/17/19 03/17/19 Range/Units 04:21 04:30 04:45 WBC 9.86 (4.0-11.0) K/uL RBC 4.88 (4.30-5.90) M/uL Hgb 13.0 (12.0-16.0) g/dL Hct 40.5 (36.0-46.0) % MCV 83.0 (80.0-98.0) fL MCH 26.6 L (27.0-32.0) pg MCHC 32.1 (31.0-37.0) g/dL RDW Std Deviation 62.4 H (28.0-62.0) fl RDW Coeff of Moe 21 H (11.0-15.0) % Plt Count 368 (150-400) K/uL MPV 10.10 (7.40-12.00) fL Neut % (Auto) 74.8 (48.0-80.0) % Lymph % (Auto) 13.5 L (16.0-40.0) % [place] % (Auto) 8.0 (0.0-15.0) % Eos % (Auto) 3.5 (0.0-7.0) % Baso % (Auto) 0.2 (0.0-1.5) % Neut # (Auto) 7.4 H (1.4-5.7) K/uL Lymph # (Auto) 1.3 (0.6-2.4) K/uL [place] # (Auto) 0.8 (0.0-0.8) K/uL Eos # (Auto) 0.4 (0.0-0.7) K/uL Baso # (Auto) 0.0 (0.0-0.1) K/uL Nucleated RBC % 0.0 /100WBC Nucleated RBCs # 0 K/uL Sodium 141 (136-145) mmol/L Potassium 3.9 (3.5-5.1) mmol/L Chloride 106 (98-107) mmol/L Carbon Dioxide 22.8 (21.0-32.0) mmol/L BUN 8 (7.0-18.0) mg/dL Creatinine 0.8 (0.6-1.0) mg/dL Est Cr Clr Drug Dosing 107.46 mL/min Estimated GFR (MDRD) > 60.0 ml/min Glucose 94 (74-106) mg/dL Calcium 8.5 (8.5-10.1) mg/dL Total Bilirubin 0.7 (0.2-1.0) mg/dL AST 23 (15-37) IU/L ALT 35 (14-63) IU/L Alkaline Phosphatase 104 (46-116) U/L Total Protein 7.2 (6.4-8.2) g/dL Albumin 2.6 L (3.4-5.0) g/dL Globulin 4.6 H (2.6-4.0) g/dL Albumin/Globulin Ratio 0.6 L (0.9-1.6) Urine Color YELLOW Urine Appearance CLEAR Urine pH 6.0 (5.0-8.0) Ur Specific [employer] <= 1.005 (1.001-1.035) Urine Protein NEGATIVE (NEGATIVE) mg/dL Urine Glucose (UA) NEGATIVE (NEGATIVE) mg/dL Urine Ketones NEGATIVE (NEGATIVE) mg/dL Urine Occult Blood MODERATE H (NEGATIVE) Urine Nitrite NEGATIVE (NEGATIVE) Urine Bilirubin NEGATIVE (NEGATIVE) Urine Urobilinogen 0.2 (<2.0) EU/dL Ur Leukocyte Esterase NEGATIVE (NEGATIVE) Urine RBC 1-2 (0-2/HPF) Urine WBC 0-3 (0-5/HPF) Ur Epithelial Cells OCCASIONAL (NONE-FEW) Urine Bacteria RARE (NEGATIVE) Meds: Medications Generic Name Dose Route Start Last Admin Trade Name Freq PRN Reason Stop Dose Admin Sodium Chloride 10 ml 03/17/19 04:29 Saline Flush FLUSH ASDIRECTED PRN Keep Vein Open Sodium Chloride 2.5 ml 03/17/19 04:29 Saline Flush FLUSH ASDIRECTED PRN Keep Vein Open Discontinued Medications Generic Name Dose Route Start Last Admin Trade Name Freq PRN Reason Stop Dose Admin Sodium Chloride 1,000 mls @ 999 mls/hr 03/17/19 04:29 03/17/19 04:37 Normal Saline IV 03/17/19 05:29 999 mls/hr STAT ONE Administration Iopamidol 100 ml 03/17/19 05:47 03/17/19 05:47 Isovue Multipack-370 (76%) IVPUSH 03/17/19 05:48 100 ml ONETIME STA Administration Ketorolac Tromethamine 30 mg 03/17/19 04:29 03/17/19 04:37 Toradol IVPUSH 03/17/19 04:30 30 mg ONETIME ONE Administration Ondansetron HCl 4 mg 03/17/19 04:29 03/17/19 04:37 Zofran IVPUSH 03/17/19 04:30 4 mg ONETIME ONE Administration Oxycodone/Acetaminophen 1 tab 03/17/19 06:20 03/17/19 06:24 Percocet 325-5 Mg PO 03/17/19 06:21 1 tab ONETIME ONE Administration Departure - Departure Time of Disposition: 06:32 Disposition: Home, Self-Care 01 Condition: Good Clinical Impression: Abdominal pain Qualifiers: Abdominal location: right lower quadrant Qualified Code(s): R10.31 - Right lower quadrant pain - Discharge Information Referrals: Evangelist Hammer MD [Primary Care Provider] - Forms: ED Department Discharge Additional Instructions: The following information is given to patients seen in the emergency department who are being discharged to home. This information is to outline your options for follow-up care. We provide all patients seen in our emergency department with a follow-up referral. The need for follow-up, as well as the timing and circumstances, are variable depending upon the specifics of your emergency department visit. If you don't have a primary care physician on staff, we will provide you with a referral. We always advise you to contact your personal physician following an emergency department visit to inform them of the circumstance of the visit and for follow-up with them and/or the need for any referrals to a consulting specialist. The emergency department will also refer you to a specialist when appropriate. This referral assures that you have the opportunity for followup care with a specialist. All of these measure are taken in an effort to provide you with optimal care, which includes your followup. Under all circumstances we always encourage you to contact your private physician who remains a resource for coordinating your care. When calling for followup care, please make the office aware that this follow-up is from your recent emergency room visit. If for any reason you are refused follow-up, please contact the [facility] emergency department at and ask to speak to the emergency department charge nurse. [facility] [address] [place] [id number] Keep your appointment scheduled for later today in the clinic for reevaluation and further care and return to ER as needed as discussed. Use the medications that you have at home for pain management. - My Orders Last 24 Hours: My Active Orders 03/17/19 04:28 Saline Lock Insert [OM.PC] Stat 03/17/19 04:29 Sodium Chloride 0.9% [Saline Flush] 10 ml FLUSH ASDIRECTED PRN Sodium Chloride 0.9% [Saline Flush] 2.5 ml FLUSH ASDIRECTED PRN - Assessment/Plan Last 24 Hours: My Active Orders 03/17/19 04:28 Saline Lock Insert [OM.PC] Stat 03/17/19 04:29 Sodium Chloride 0.9% [Saline Flush] 10 ml FLUSH ASDIRECTED PRN Sodium Chloride 0.9% [Saline Flush] 2.5 ml FLUSH ASDIRECTED PRN
[2019-03-17 04:49] LABS: BLOOD UREA NITROGEN,BUN 8 mg/dL (7.0-18.0); CARBON DIOXIDE,CO2 22.8 mmol/L (21.0-32.0); CHLORIDE,CL 106 mmol/L (98-107); GLUCOSE RANDOM 94 mg/dL (74-106); POTASSIUM,K 3.9 mmol/L (3.5-5.1); SODIUM,NA 141 mmol/L (136-145)
[2019-03-17] MEDS ORDERED: Iopamidol 755 MG/ML 500 ML Multipack Bottle IVPUSH STA (05:47)
[2019-03-17 06:20] VITALS: BP 113/60; PULSE 78
[2019-03-17] MEDS ORDERED: Acetaminophen/oxyCODONE 325-5 MG Tab PO ONE (06:20)
--- NOTE | 2019-03-17 06:29 | CT ---
INDICATION: Right-sided abdominal pain; recent ; rule out kidney stone. COMPARISON: Chest radiograph June 13, 2009. TECHNIQUE: CT abdomen and pelvis with intravenous contrast; coronal and sagittal reformats. FINDINGS: Tiny 3 mm subpleural noncalcified nodular densities left lung base. No other abnormal intra pulmonary nodular densities. Normal size cardiac silhouette without any evidence of pericardial effusion. No evidence of pleural effusion. No focal hepatic or splenic pathology. No pancreatic pathology. Gallbladder is unremarkable. No adrenal pathology. No kidney stones or obstructive uropathy. No retroperitoneal lymphadenopathy. Normal appendix. No evidence of abdominal or pelvic ascites. uterus. No intra-abdominal or retroperitoneal hemorrhage. CT of the pelvis is unremarkable. Status post gastric bypass surgery. Impression: 1. No kidney stones or obstructive uropathy. 2. Normal appendix. 3. Status post gastric bypass surgery. 4. Status post . Please note that all CT scans at this facility use dose modulation, iterative reconstruction, and/or weight-based dosing when appropriate to reduce radiation dose to as low as reasonably achievable. Dictated by Maris Luo MD @ Mar 17 2019 6:23AM Signed by Dr. Maris Luo @ Mar 17 2019 6:28AM
== END 2019-03-17 06:40 | disposition home or self-care (01) ==
LOC: MW.ED 04:10
DX: O90.89 Other complications of the puerperium, not elsewhere classified (principal); R10.31 Right lower quadrant pain; O99.215 Obesity complicating the puerperium; Z88.5 Allergy status to narcotic agent; Z98.890 Other specified postprocedural states
CPT/HCPCS: 36415; 74177; 80053; 81001; 85025; 96361; 96374; 96375; 99284; A9270; J1885; J2405; J7040; Q9967

== ENCOUNTER 2020-02-27 03:23 | Emergency (ER) | payer MEDICAID ==
--- NOTE | 2020-02-27 03:35 | EDM.PDOC ---
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 Noted mild left pelvic cramping pains yesterday. This morning woke up and had some vaginal spotting in her underwear. No N/V, no tissue/clots passed, no dysuria/hematuria. abdomen Pain Score (Numeric/FACES): 1 - Related Data Allergies Allergy/AdvReac Type Severity Reaction Status Date / Time morphine Allergy Severe Rash Verified 03/17/19 04:22 Home Meds: Home Meds Acetaminophen/oxyCODONE [Percocet 325-5 MG] 1 - 2 tab PO Q4H PRN 5 Days #20 tablet 03/11/19 [Rx] Ibuprofen [Motrin] 800 mg PO Q8H PRN 5 Days #30 tablet 03/11/19 [Rx] Past Medical History - Past Health History Medical/Surgical History: Denies Medical/Surgical History HEENT History: Reports: Other (See Below) Other HEENT History: dental braces Cardiovascular History: Reports: None Respiratory History: Reports: None Gastrointestinal History: Reports: Other (See Below) Other Gastrointestinal History: Gastric Bypass done in [place] on 09/21/2015 Genitourinary History: Reports: None 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: Musculoskeletal History: Reports: Fracture Other Musculoskeletal History: R wrist- fracture- plates et screws Neurological History: Reports: None Psychiatric History: Reports: None Endocrine/Metabolic History: Reports: Obesity/BMI 30+ Hematologic History: Reports: Anemia Other Hematologic History: hx iron transfusion Immunologic History: Reports: None Oncologic (Cancer) History: Reports: None Dermatologic History: Reports: None - Infectious Disease History Infectious Disease History: Reports: None - Past Surgical History Head Surgeries/Procedures: Reports: None HEENT Surgical History: Reports: None Cardiovascular Surgical History: Reports: None Respiratory Surgical History: Reports: None GI Surgical History: Reports: Bariatric Procedure Female Surgical History: Reports: Section Other Female Surgeries/Procedures: x2 Endocrine Surgical History: Reports: Thyroidectomy Other Endocrine Surgeries/Procedures: partial thyroidectomy Neurological Surgical History: Reports: None Musculoskeletal Surgical History: Reports: ORIF Other Musculoskeletal Surgeries/Procedures:: Right wrist repair with metal plate Oncologic Surgical History: Reports: None Dermatological Surgical History: Reports: None Social & Family History - Family History Family Medical History: Noncontributory Cardiac: Reports: None Respiratory: Reports: None GI: Reports: None Psychiatric: Reports: None Endocrine/Metabolic: Reports: None Hematologic: Reports: None - Caffeine Use Caffeine Use: Reports: Coffee, Soda ED ROS GENERAL - Review of Systems Review Of Systems: Comprehensive ROS is negative, except as noted in HPI. ED EXAM - Physical Exam Exam: See Below Exam Limited By: No Limitations General Appearance: Alert, WD/WN, No Apparent Distress Ears: Normal External Exam Nose: Normal Inspection Throat/Mouth: Normal Inspection, Normal Voice, No Airway Compromise Head: Atraumatic, Normocephalic Neck: Normal Inspection Respiratory/Chest: No Respiratory Distress, Lungs Clear, Normal Breath Sounds, No Accessory Muscle Use Cardiovascular: Normal Peripheral Pulses, Regular Rate, Rhythm GI/Abdominal Exam: Soft, Non-Tender (Female) Exam: Normal Bimanual Exam, Normal External Exam, Normal Speculum Exam, Vaginal Bleeding. No: Adnexal Mass (L), Adnexal Mass (R), Adnexal Tenderness, Cervical Dilatation, Cervical Discharge, Cervix Motion Tenderness, Products of Conception, Tissue Present in Cervix/Vagina Heart Tones: Present Extremities: Normal Inspection Neurological: Alert Psychiatric: Normal Affect, Normal Mood Skin Exam: Warm, Dry, Intact, Normal Color Course - Vital Signs Last Recorded V/S: Last Vital Signs Temp 97.3 F 02/27/20 03:36 Pulse 101 H 02/27/20 03:36 Resp 16 02/27/20 03:36 BP 136/83 02/27/20 03:36 Pulse Ox 97 02/27/20 03:36 - Orders/Labs/Meds Labs: Laboratory Tests 02/27/20 02/27/20 02/27/20 Range/Units 03:48 04:21 04:21 WBC 6.69 (4.0-11.0) K/uL RBC 4.51 (4.30-5.90) M/uL Hgb 11.2 L (12.0-16.0) g/dL Hct 36.0 (36.0-46.0) % MCV 79.8 L (80.0-98.0) fL MCH 24.8 L (27.0-32.0) pg MCHC 31.1 (31.0-37.0) g/dL RDW Std Deviation 50.3 (28.0-62.0) fl RDW Coeff of Moe 17 H (11.0-15.0) % Plt Count 321 (150-400) K/uL MPV 10.30 (7.40-12.00) fL Neut % (Auto) 54.5 (48.0-80.0) % Lymph % (Auto) 37.8 (16.0-40.0) % [place] % (Auto) 5.8 (0.0-15.0) % Eos % (Auto) 1.5 (0.0-7.0) % Baso % (Auto) 0.4 (0.0-1.5) % Neut # (Auto) 3.6 (1.4-5.7) K/uL Lymph # (Auto) 2.5 H (0.6-2.4) K/uL [place] # (Auto) 0.4 (0.0-0.8) K/uL Eos # (Auto) 0.1 (0.0-0.7) K/uL Baso # (Auto) 0.0 (0.0-0.1) K/uL Nucleated RBC % 0.0 /100WBC Nucleated RBCs # 0 K/uL Sodium 138 (136-145) mmol/L Potassium 3.6 (3.5-5.1) mmol/L Chloride 105 (98-107) mmol/L Carbon Dioxide 24.5 (21.0-32.0) mmol/L BUN 7 (7.0-18.0) mg/dL Creatinine 0.8 (0.6-1.0) mg/dL Est Cr Clr Drug Dosing TNP Estimated GFR (MDRD) > 60.0 ml/min Glucose 99 (74-106) mg/dL Calcium 8.4 L (8.5-10.1) mg/dL Total Bilirubin 0.5 (0.2-1.0) mg/dL AST 20 (15-37) IU/L ALT 26 (14-63) IU/L Alkaline Phosphatase 70 (46-116) U/L Total Protein 6.9 (6.4-8.2) g/dL Albumin 2.8 L (3.4-5.0) g/dL Globulin 4.1 H (2.6-4.0) g/dL Albumin/Globulin Ratio 0.7 L (0.9-1.6) HCG, Quant 438.0 mIU/mL Urine Color YELLOW Urine Appearance CLEAR Urine pH 6.0 (5.0-8.0) Ur Specific [place] 1.015 (1.001-1.035) Urine Protein NEGATIVE (NEGATIVE) mg/dL Urine Glucose (UA) NEGATIVE (NEGATIVE) mg/dL Urine Ketones NEGATIVE (NEGATIVE) mg/dL Urine Occult Blood NEGATIVE (NEGATIVE) Urine Nitrite NEGATIVE (NEGATIVE) Urine Bilirubin NEGATIVE (NEGATIVE) Urine Urobilinogen 0.2 (<2.0) EU/dL Ur Leukocyte Esterase NEGATIVE (NEGATIVE) Blood Type 02/27/20 Range/Units 04:21 WBC (4.0-11.0) K/uL RBC (4.30-5.90) M/uL Hgb (12.0-16.0) g/dL Hct (36.0-46.0) % MCV (80.0-98.0) fL MCH (27.0-32.0) pg MCHC (31.0-37.0) g/dL RDW Std Deviation (28.0-62.0) fl RDW Coeff of Moe (11.0-15.0) % Plt Count (150-400) K/uL MPV (7.40-12.00) fL Neut % (Auto) (48.0-80.0) % Lymph % (Auto) (16.0-40.0) % [place] % (Auto) (0.0-15.0) % Eos % (Auto) (0.0-7.0) % Baso % (Auto) (0.0-1.5) % Neut # (Auto) (1.4-5.7) K/uL Lymph # (Auto) (0.6-2.4) K/uL [place] # (Auto) (0.0-0.8) K/uL Eos # (Auto) (0.0-0.7) K/uL Baso # (Auto) (0.0-0.1) K/uL Nucleated RBC % /100WBC Nucleated RBCs # K/uL Sodium (136-145) mmol/L Potassium (3.5-5.1) mmol/L Chloride (98-107) mmol/L Carbon Dioxide (21.0-32.0) mmol/L BUN (7.0-18.0) mg/dL Creatinine (0.6-1.0) mg/dL Est Cr Clr Drug Dosing Estimated GFR (MDRD) ml/min Glucose (74-106) mg/dL Calcium (8.5-10.1) mg/dL Total Bilirubin (0.2-1.0) mg/dL AST (15-37) IU/L ALT (14-63) IU/L Alkaline Phosphatase (46-116) U/L Total Protein (6.4-8.2) g/dL Albumin (3.4-5.0) g/dL Globulin (2.6-4.0) g/dL Albumin/Globulin Ratio (0.9-1.6) HCG, Quant mIU/mL Urine Color Urine Appearance Urine pH (5.0-8.0) Ur Specific [place] (1.001-1.035) Urine Protein (NEGATIVE) mg/dL Urine Glucose (UA) (NEGATIVE) mg/dL Urine Ketones (NEGATIVE) mg/dL Urine Occult Blood (NEGATIVE) Urine Nitrite (NEGATIVE) Urine Bilirubin (NEGATIVE) Urine Urobilinogen (<2.0) EU/dL Ur Leukocyte Esterase (NEGATIVE) Blood Type O POSITIVE - Re-Assessments/Exams Free Text/Narrative Re-Assessment/Exam: 02/27/20 03:34 Patient presents with vaginal bleeding in 1st trimester; will get labs, will do bedside POCUS. 02/27/20 04:38 I was unable to find a FHT on bedside POCUS. OB nurse was called down and is also unable to find a FHT on her doppler or portable US machine. Will call US factory maintenance technician for official pelvic US 02/27/20 05:22 Labs unremarkable, official pelvic US does not show cardiac activity. Likely incomplete miscarriage. This was discussed with the patient and she would like to seek a second opinion and is able to follow-up with her OBGYN today. She is stable and there is no contraindication to discharge. Departure - Departure Time of Disposition: 05:19 Disposition: Home, Self-Care 01 Condition: Good Clinical Impression: Incomplete - Discharge Information Instructions: Incomplete Miscarriage Referrals: PCP,None [Primary Care Provider] - Forms: ED Department Discharge Additional Instructions: The following information is given to patients seen in the emergency department who are being discharged to home. This information is to outline your options for follow-up care. We provide all patients seen in our emergency department with a follow-up referral. The need for follow-up, as well as the timing and circumstances, are variable depending upon the specifics of your emergency department visit. If you don't have a primary care physician on staff, we will provide you with a referral. We always advise you to contact your personal physician following an emergency department visit to inform them of the circumstance of the visit and for follow-up with them and/or the need for any referrals to a consulting specialist. The emergency department will also refer you to a specialist when appropriate. This referral assures that you have the opportunity for follow-up care with a s pecialist. All of these measure are taken in an effort to provide you with optimal care, which includes your follow-up. Under all circumstances we always encourage you to contact your private physici an who remains a resource for coordinating your care. When calling for follow-up care, please make the office aware that this follow-up is from your recent emergency room visit. If for any reason you are refused follow-up, please contact the [facility] Emergency Department at and asked to speak to the emergency department charge nurse. Please follow up with your primary care physician. If you do not have a primary care physician, see below: [facility] [address] [place] [id number] [facility] [address] [place] [address] Sepsis Event Note (ED) - Focused Exam Vital Signs: Vital Signs Temp Pulse Resp BP Pulse Ox 02/27/20 03:36 97.3 F 101 H 16 136/83 97
[2020-02-27 03:38] VITALS: BP 136/83; PULSE 101
[2020-02-27 04:54] LABS: BLOOD UREA NITROGEN,BUN 7 mg/dL (7.0-18.0); CARBON DIOXIDE,CO2 24.5 mmol/L (21.0-32.0); CHLORIDE,CL 105 mmol/L (98-107); GLUCOSE RANDOM 99 mg/dL (74-106); POTASSIUM,K 3.6 mmol/L (3.5-5.1); SODIUM,NA 138 mmol/L (136-145)
--- NOTE | 2020-02-27 05:33 | US ---
INDICATION: Vaginal bleeding. No cardiac activity detected TECHNIQUE: A limited transabdominal obstetrical ultrasound COMPARISON: None available FINDINGS: A single intrauterine gestation is present. Estimated gestational age by sonographic measurements is 15 weeks and 0 days, less than the gestational age by dates of 18 weeks and 5 days. No cardiac activity is detected. Neither ovary is visualized. No significant free fluid is seen. IMPRESSION: An intrauterine gestation at 15 weeks and 0 days by sonographic measurements, without cardiac activity, consistent with demise. The findings were discussed with Dr. Young, by phone, on 02/27/2020 at 5:30 a.m.. Dictated by Diogo Delgado MD @ 02/27/2020 5:31:54 AM Dictated by: Diogo Delgado MD @ 02/27/2020 05:31:59 (Electronically Signed)
== END 2020-02-27 05:30 | disposition home or self-care (01) ==
LOC: MW.ED 03:23
DX: O03.4 Incomplete spontaneous abortion without complication (principal); E66.9 Obesity, unspecified; Z88.5 Allergy status to narcotic agent
CPT/HCPCS: 36415; 76815; 76815-26; 80053; 81003; 84702; 85025; 86900; 86901; 99282; 99284-25

== ENCOUNTER 2020-02-27 14:04 | Inpatient (IN) | payer MEDICAID ==
[2020-02-27] MEDS ORDERED: Sodium Chloride 0.9% 10 ML SDV IV PRN (18:14)
[2020-02-27] MEDS ORDERED: Butorphanol 2 MG/ML SDV IVPUSH PRN (18:14)
[2020-02-27] MEDS ORDERED: Sodium Chloride 0.9% 10 ML Syringe FLUSH PRN (18:14)
[2020-02-27] MEDS ORDERED: Nalbuphine 10 MG/1 ML Vial IVPUSH PRN (18:14)
[2020-02-27] MEDS ORDERED: Ondansetron 4 MG/2 ML SDV IVPUSH PRN (18:14)
[2020-02-27] MEDS ORDERED: Carboprost Tromethamine 250 MCG/1 ML Amp IM PRN (18:14)
[2020-02-27] MEDS ORDERED: Sodium Chloride 0.9% 2.5 ML Syringe FLUSH PRN (18:14)
[2020-02-27] MEDS ORDERED: Methylergonovine 0.2 MG/1 ML Amp IM PRN (18:14)
[2020-02-27] MEDS ORDERED: Lactated Ringers 1,000 ML IV SCH (18:15)
[2020-02-27] MEDS ORDERED: Misoprostol 50 MCG (1/2 of 100 MCG) Tab VAG ONE (18:20)
[2020-02-27] MEDS ORDERED: Acetaminophen/oxyCODONE 325-5 MG Tab PO PRN (18:29)
--- NOTE | 2020-02-27 18:32 | PCM.LDHP ---
L&D History of Present Illness - General Date of Service: 02/28/20 Admit Problem/Dx: Patient Status Order with Admit Dx/Problem 02/27/20 18:14 Patient Status [ADT] Routine Admission Diagnosis/Problem Admission Diagnosis/Problem Missed with demise before 20 completed weeks of gestation - History of Present Illness Introduction:: 30yo at 18w3d, MARILEE 07/27/2020 by LMP c/w 14w6d US presenting with demise. Patient had mild cramping and light vaginal bleeding. She was seen in [place] ED this AM and was diagnosed with demise, no cardiac activity and measuring 15wks. She wanted a second opinion and was at [place] ED and demise was again confirmed. She denies any recent infections or sick contacts. Had initial OB visit with normal labs. Previously had a at 35wks and 2 repeat at term. She has morbid obesity, is otherwise healthy. Present Illness Comments:: 30yo @18w4d presenting with demise. MARILEE 07/27/2020 by LMP c/w 14w6d US. Patient had initial OB visit with normal labs. She has been - Related Data Allergies/Adverse Reactions: Allergies Allergy/AdvReac Type Severity Reaction Status Date / Time morphine Allergy Severe Rash Verified 03/17/19 04:22 Home Medications: Home Meds Acetaminophen/oxyCODONE [Percocet 325-5 MG] 1 - 2 tab PO Q4H PRN 5 Days #20 tablet 03/11/19 [Rx] Ibuprofen [Motrin] 800 mg PO Q8H PRN 5 Days #30 tablet 03/11/19 [Rx] Past Medical History - Past Health History Medical/Surgical History: Denies Medical/Surgical History HEENT History: Reports: Other (See Below) Other HEENT History: dental braces Cardiovascular History: Reports: None Respiratory History: Reports: None Gastrointestinal History: Reports: Other (See Below) Other Gastrointestinal History: Gastric Bypass done in [place] on 09/21/2015 Genitourinary History: Reports: None 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: , 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 Musculoskeletal History: Reports: Fracture Other Musculoskeletal History: R wrist- fracture- plates et screws Neurological History: Reports: None Psychiatric History: Reports: None Endocrine/Metabolic History: Reports: Obesity/BMI 30+, Other (See Below) Hematologic History: Reports: Anemia Other Hematologic History: hx iron transfusion Immunologic History: Reports: None Oncologic (Cancer) History: Reports: None Dermatologic History: Reports: None - Infectious Disease History Infectious Disease History: Reports: None - Past Surgical History Head Surgeries/Procedures: Reports: None HEENT Surgical History: Reports: None, Oral Surgery Cardiovascular Surgical History: Reports: None Respiratory Surgical History: Reports: None GI Surgical History: Reports: Bariatric Procedure Female Surgical History: Reports: Section Other Female Surgeries/Procedures: x2 Endocrine Surgical History: Reports: Thyroidectomy Other Endocrine Surgeries/Procedures: partial thyroidectomy Neurological Surgical History: Reports: None Musculoskeletal Surgical History: Reports: ORIF Other Musculoskeletal Surgeries/Procedures:: Right wrist repair with metal plate Oncologic Surgical History: Reports: None Dermatological Surgical History: Reports: None Social & Family History - Family History Family Medical History: Noncontributory Cardiac: Reports: None Respiratory: Reports: None GI: Reports: None Psychiatric: Reports: None Endocrine/Metabolic: Reports: None Hematologic: Reports: None - Caffeine Use Caffeine Use: Reports: Coffee, Soda H&P Review of Systems - Review of Systems: Review Of Systems: See Below General: Reports: No Symptoms HEENT: Reports: No Symptoms Pulmonary: Reports: No Symptoms Cardiovascular: Reports: No Symptoms Gastrointestinal: Reports: No Symptoms Genitourinary: Reports: Pain, Other (Light vaginal bleeding) Musculoskeletal: Reports: No Symptoms Skin: Reports: No Symptoms Psychiatric: Reports: No Symptoms Neurological: Reports: No Symptoms Hematologic/Lymphatic: Reports: No Symptoms Immunologic: Reports: No Symptoms L&D Exam - Exam Exam: See Below - Vital Signs Weight: 372 lb - OB Specific Contraction Intensity: Mild - Hutchinson Score Hutchinson Score Cervix Position: Posterior Hutchinson Score Consistency: Firm Hutchinson Score Effacement: 0-30% Hutchinson Score Dilation: Closed Hutchinson Score Infant's Station: -3 Hutchinson Score Total: 0 - Exam General: Alert, Oriented, Cooperative Neck: Supple, Trachea Midline Lungs: Normal Respiratory Effort GI/Abdominal Exam: Soft, Non-Tender, No Distention Genitourinary: Normal external exam, Other (Closed/thick/high per pt nurse) Back Exam: Normal Inspection, Full Range of Motion Extremities: Normal Inspection, Normal Range of Motion, Non-Tender, No Pedal Edema Skin: Warm, Dry, Intact Neurological: Cranial Nerves Intact Psychiatric: Alert, Normal Affect, Normal Mood - Patient Data Lab Results Last 24 hrs: Laboratory Results - last 24 hr 02/27/20 Range/Units 13:55 SARS-CoV-2 RNA (MICHAEL) NEGATIVE (NEGATIVE) Problem List Initiated/Reviewed/Updated: Yes Orders Last 24hrs: Active Orders 24 hr Category Date Time Status Patient Status [ADT] Routine ADT 02/27/20 18:14 Ordered Up ad Tatianna [RC] ASDIRECTED Care 02/27/20 18:14 Ordered Uterine Contraction Monitor [RC] PER UNIT ROUTINE Care 02/27/20 18:14 Ordered Vaginal Exam [RC] PRN Care 02/27/20 18:14 Ordered Vital Signs [RC] PER UNIT ROUTINE Care 02/27/20 18:14 Ordered TYPE AND SCREEN [BBK] Routine Lab 02/27/20 18:09 Ordered Acetaminophen/oxyCODONE [Percocet 325-5 MG] Med 02/27/20 18:29 Ordered 1 tab PO Q4H PRN Butorphanol [Stadol] Med 02/27/20 18:14 Ordered 2 mg IVPUSH Q3H PRN Carboprost Tromethamine [Hemabate DS] Med 02/27/20 18:14 Ordered 250 mcg IM ASDIRECTED PRN Ketorolac [Toradol] Med 02/27/20 18:45 Ordered 30 mg IVPUSH Q6H Lactated Ringers @ 125 MLS/HR(1,000ml) Med 02/27/20 18:15 Ordered Lactated Ringers [Ringers, Lactated] 1,000 ml IV ASDIRECTED Methylergonovine [Methergine] Med 02/27/20 18:14 Ordered 0.2 mg IM ASDIRECTED PRN Nalbuphine [Nubain] Med 02/27/20 18:14 Ordered 10 mg IVPUSH Q1H PRN Ondansetron [Zofran] Med 02/27/20 18:14 Ordered 4 mg IVPUSH Q6H PRN Sodium Chloride 0.9% [Normal Saline] Med 02/27/20 18:14 Ordered 10 ml IV ASDIRECTED PRN Sodium Chloride 0.9% [Saline Flush] Med 02/27/20 18:14 Ordered 10 ml FLUSH ASDIRECTED PRN Sodium Chloride 0.9% [Saline Flush] Med 02/27/20 18:14 Ordered 2.5 ml FLUSH ASDIRECTED PRN miSOPROStoL [Cytotec] Med 02/27/20 18:21 Ordered 400 mcg VAG Q4HR Peripheral IV Insertion Adult [OM.PC] Routine Oth 02/27/20 18:14 Ordered Medication Orders Butorphanol Tartrate (Stadol) 2 mg IVPUSH Q3H PRN PRN Reason: Pain (mild 1-3) Carboprost Tromethamine (Hemabate Ds) 250 mcg IM ASDIRECTED PRN PRN Reason: Post Hemorrhage Lactated Ringer's (Ringers, Lactated) 1,000 mls @ 125 mls/hr IV ASDIRECTED BARRETT Ketorolac Tromethamine (Toradol) 30 mg IVPUSH Q6H BARRETT Stop: 02/28/20 12:46 Methylergonovine Maleate (Methergine) 0.2 mg IM ASDIRECTED PRN PRN Reason: Post Hemorrhage Misoprostol (Cytotec) 400 mcg VAG Q4HR BARRETT Nalbuphine HCl (Nubain) 10 mg IVPUSH Q1H PRN PRN Reason: Pain (severe 7-10) Ondansetron HCl (Zofran) 4 mg IVPUSH Q6H PRN PRN Reason: Nausea/Vomiting Oxycodone/Acetaminophen (Percocet 325-5 Mg) 1 tab PO Q4H PRN PRN Reason: Pain (moderate 4-6) Sodium Chloride (Saline Flush) 10 ml FLUSH ASDIRECTED PRN PRN Reason: Keep Vein Open Sodium Chloride (Saline Flush) 2.5 ml FLUSH ASDIRECTED PRN PRN Reason: Keep Vein Open Sodium Chloride (Normal Saline) 10 ml IV ASDIRECTED PRN PRN Reason: IV Use Assessment/Plan Comment:: 30yo at 18w3d by LMP presenting with demise, baby measuring 15w0d. - Review with patient most common cause of demise in early 2nd trimester is chromosomal abnormalities, other possible causes include congenital infections or antiphospholipid syndrome. She declines further testing at this time, does not desire genetics or autopsy, would like to burial for the baby. Reviewed options for management and she desires to proceed with induction - admit to OBS, CBC, T&S and COVID19 test - cytotec 400mg q4hr PV for induction - nubain, percocet, and toradol PRN for pain, has allergy to morphine but tolerated other narcotics in the past
[2020-02-27] MEDS ORDERED: Acetaminophen/oxyCODONE 325-10 MG Tab PO PRN (20:27)
[2020-02-27] MEDS ORDERED: Misoprostol 100 MCG Tab ONE (20:51)
[2020-02-27] MEDS ORDERED: Oxytocin/0.9 % Sodium Chloride 30 UNIT/500 ML BAG ONE (21:00)
[2020-02-27] MEDS: Misoprostol 50 MCG (1/2 of 100 MCG) Tab VAG SCH (21:11)
[2020-02-28] MEDS ORDERED: Misoprostol 100 MCG Tab ONE ×3 (00:58→09:13)
[2020-02-28] MEDS: Ketorolac 30 MG/ML SDV IVPUSH SCH ×4 (01:07→13:30)
[2020-02-28] MEDS: Misoprostol 50 MCG (1/2 of 100 MCG) Tab VAG SCH ×4 (01:13→09:14)
[2020-02-28] MEDS ORDERED: Nalbuphine 10 MG/1 ML Vial IVPUSH ONE (06:37)
[2020-02-28] MEDS ORDERED: Ibuprofen 400 MG Tab PO PRN (06:44)
[2020-02-28] MEDS ORDERED: Lanolin 100% Cream 7 GM Tube TOP PRN (06:44)
[2020-02-28] MEDS ORDERED: Benzocaine/Menthol 20%-0.5% Spray 78 GM Cannister TOP PRN (06:44)
[2020-02-28] MEDS ORDERED: Docusate Sodium 100 MG Cap PO PRN (06:44)
[2020-02-28] MEDS ORDERED: Bisacodyl 10 MG Supp RECTAL PRN (06:44)
[2020-02-28] MEDS ORDERED: Witch Hazel Medicated Pads 40/Jar TOP PRN (06:44)
[2020-02-28] MEDS ORDERED: Ibuprofen 800 MG Tab PO PRN (06:44)
[2020-02-28] MEDS ORDERED: Misoprostol 200 MCG Tab ONE (09:05)
[2020-02-28] MEDS: Carboprost Tromethamine 250 MCG/1 ML Amp IM SCH ×3 (12:27→14:06)
[2020-02-28 16:30] VITALS: BP 108/67; PULSE 79
--- NOTE | 2020-02-28 17:08 | PCM.PNPP ---
- General Info Date of Service: 02/28/20 Functional Status: Reports: Pain Controlled, Tolerating Diet, Ambulating, Urinating - Review of Systems General: Reports: No Symptoms HEENT: Reports: No Symptoms Pulmonary: Reports: No Symptoms Cardiovascular: Reports: No Symptoms Gastrointestinal: Reports: No Symptoms Genitourinary: Reports: No Symptoms Musculoskeletal: Reports: No Symptoms Skin: Reports: No Symptoms Neurological: Reports: No Symptoms Psychiatric: Reports: No Symptoms - Patient Data Vital Signs - Most Recent: Last Vital Signs Temp 36.4 C 02/28/20 16:29 Pulse 79 02/28/20 16:29 Resp 16 02/28/20 16:29 BP 108/67 02/28/20 16:29 Pulse Ox 100 02/28/20 16:29 Weight - Most Recent: 372 lb I&O - Last 24 Hours: Intake & Output 02/28/20 02/28/20 02/28/20 06:59 14:59 22:59 Output Total 54 Balance -54 Lab Results - Last 24 Hours: Laboratory Results - last 24 hr 02/27/20 Range/Units 18:30 Blood Type O POSITIVE Antibody Screen NEGATIVE Med Orders - Current: Current Medications Benzocaine/Menthol (Dermoplast Pain Relief 20%-0.5% Eitzen) 78 gm TOP ASDIRECTED PRN PRN Reason: Perineal Comfort Measure Bisacodyl (Dulcolax) 10 mg RECTAL ONETIME PRN PRN Reason: Constipation Butorphanol Tartrate (Stadol) 2 mg IVPUSH Q3H PRN PRN Reason: Pain (mild 1-3) Carboprost Tromethamine (Hemabate Ds) 250 mcg IM ASDIRECTED PRN PRN Reason: Post Hemorrhage Docusate Sodium (Colace) 100 mg PO BID PRN PRN Reason: Constipation Emollient Ointment (Lansinoh Hpa) 0 gm TOP ASDIRECTED PRN PRN Reason: Sore Nipples Lactated Ringer's (Ringers, Lactated) 1,000 mls @ 125 mls/hr IV ASDIRECTED BARRETT Ibuprofen (Motrin) 400 mg PO Q4H PRN PRN Reason: Pain Ibuprofen (Motrin) 800 mg PO Q6H PRN PRN Reason: Pain Methylergonovine Maleate (Methergine) 0.2 mg IM ASDIRECTED PRN PRN Reason: Post Hemorrhage Misoprostol (Cytotec) 400 mcg VAG Q4HR [facility] Last Admin: 02/28/20 09:14 Dose: 400 mcg Documented by: Nalbuphine HCl (Nubain) 10 mg IVPUSH Q1H PRN PRN Reason: Pain (severe 7-10) Ondansetron HCl (Zofran) 4 mg IVPUSH Q6H PRN PRN Reason: Nausea/Vomiting Oxycodone/Acetaminophen (Percocet 325-10 Mg) 1 - 2 tab PO Q4H PRN PRN Reason: Abdominal Pain Last Admin: 02/28/20 06:30 Dose: 2 tab Documented by: Sodium Chloride (Saline Flush) 10 ml FLUSH ASDIRECTED PRN PRN Reason: Keep Vein Open Sodium Chloride (Saline Flush) 2.5 ml FLUSH ASDIRECTED PRN PRN Reason: Keep Vein Open Sodium Chloride (Normal Saline) 10 ml IV ASDIRECTED PRN PRN Reason: IV Use Witch Fabby (Tucks) 1 pad TOP ASDIRECTED PRN PRN Reason: comfort care Discontinued Medications Carboprost Tromethamine (Hemabate Ds) 250 mcg IM Q2HR [facility] Stop: 02/28/20 16:01 Last Admin: 02/28/20 14:06 Dose: 250 mcg Documented by: Oxytocin/Sodium Chloride (Oxytocin 30 Unit/500 Ml-Ns) Confirm Administered Dose 30 unit in 500 mls @ as directed .ROUTE .STK-MED ONE Stop: 02/27/20 21:01 Last Admin: 02/28/20 07:10 Dose: 999 mls/hr Documented by: Ketorolac Tromethamine (Toradol) 30 mg IVPUSH Q6H [facility] Stop: 02/28/20 12:46 Last Admin: 02/28/20 13:30 Dose: 30 mg Documented by: Misoprostol (Cytotec) 600 mcg VAG ONETIME ONE Stop: 02/27/20 18:21 Misoprostol (Cytotec) Confirm Administered Dose 400 mcg .ROUTE .STK-MED ONE Stop: 02/27/20 20:52 Misoprostol (Cytotec) Confirm Administered Dose 400 mcg .ROUTE .STK-MED ONE Stop: 02/28/20 00:59 Misoprostol (Cytotec) Confirm Administered Dose 400 mcg .ROUTE .STK-MED ONE Stop: 02/28/20 04:42 Misoprostol (Cytotec) Confirm Administered Dose 400 mcg .ROUTE .STK-MED ONE Stop: 02/28/20 09:06 Misoprostol (Cytotec) Confirm Administered Dose 400 mcg .ROUTE .STK-MED ONE Stop: 02/28/20 09:14 Nalbuphine HCl (Nubain) 10 mg IVPUSH ONETIME ONE Stop: 02/28/20 06:38 Oxycodone/Acetaminophen (Percocet 325-5 Mg) 1 tab PO Q4H PRN PRN Reason: Pain (moderate 4-6) - Interaction Support Person: Significant Other - Recovery Exam Fundal Tone: Firm Fundal Level: At Umbilicus Fundal Placement: Midline Lochia Amount: Small Perineum Description: Intact, Minimal Bruising/Swelling Episiotomy/Laceration: None - Exam General: Alert, Oriented, Cooperative, No Acute Distress HEENT: Pupils Equal, Pupils Reactive Neck: Supple, Trachea Midline, No JVD Lungs: Normal Respiratory Effort GI/Abdominal Exam: Soft, Non-Tender, No Organomegaly, No Distention Extremities: Normal Inspection, Normal Range of Motion, Non-Tender, No Pedal Edema Skin: Warm, Dry, Intact Neurological: No New Focal Deficit Psy/Mental Status: Alert, Normal Affect, Normal Mood - Problem List Review Problem List Initiated/Reviewed/Updated: Yes - My Orders Last 24 Hours: My Active Orders 02/27/20 18:14 Up ad Tatianna [RC] ASDIRECTED Vital Signs [RC] PER UNIT ROUTINE Butorphanol [Stadol] 2 mg IVPUSH Q3H PRN Carboprost Tromethamine [Hemabate DS] 250 mcg IM ASDIRECTED PRN Methylergonovine [Methergine] 0.2 mg IM ASDIRECTED PRN Nalbuphine [Nubain] 10 mg IVPUSH Q1H PRN Ondansetron [Zofran] 4 mg IVPUSH Q6H PRN Sodium Chloride 0.9% [Normal Saline] 10 ml IV ASDIRECTED PRN Sodium Chloride 0.9% [Saline Flush] 10 ml FLUSH ASDIRECTED PRN Sodium Chloride 0.9% [Saline Flush] 2.5 ml FLUSH ASDIRECTED PRN Peripheral IV Insertion Adult [OM.PC] Routine 02/27/20 18:15 Lactated Ringers [Ringers, Lactated] 1,000 ml IV ASDIRECTED 02/27/20 18:21 miSOPROStoL [Cytotec] 400 mcg VAG Q4HR 02/27/20 20:27 Acetaminophen/oxyCODONE [Percocet 325-10 MG] 1 - 2 tab PO Q4H PRN 02/28/20 06:44 Benzocaine/Menthol [Dermoplast Pain Relief 20%-0.5% Eitzen] 78 gm TOP ASDIRECTED PRN Docusate Sodium [Colace] 100 mg PO BID PRN Ibuprofen [Motrin] 400 mg PO Q4H PRN Ibuprofen [Motrin] 800 mg PO Q6H PRN Lanolin [Lansinoh HPA] See Dose Instructions TOP ASDIRECTED PRN bisacodyL [Dulcolax] 10 mg RECTAL ONETIME PRN witch Fabby [Tucks] 1 pad TOP ASDIRECTED PRN Resuscitation Status Routine 02/28/20 06:45 Patient Status [ADT] Routine May Shower [RC] ASDIRECTED Up ad Tatianna [RC] ASDIRECTED Vital Signs [RC] PER UNIT ROUTINE Assess Lochia [WOMSER] Per Unit Routine Assess Uterine Involution [WOMSER] Per Unit Routine Peripheral IV Discontinue [OM.PC] Routine 02/28/20 06:46 Perineal Care [OM.PC] Per Unit Routine Sitz Bath [OM.PC] Per Unit Routine 02/28/20 16:00 Pelvis Non OB Ltd [US] Routine 02/28/20 16:58 Ready for Discharge [RC] PER UNIT ROUTINE 02/29/20 05:11 HEMOGLOBIN/HEMATOCRIT,HH [HEME] Timed - Assessment Assessment:: 30yo PPD0 s/p of 15wk demise. Stable and recovering well. - Plan Plan:: - vitals stable - bleeding light, minimal pain - ambulating and tolerating PO - pelvic US with no retained POC in the uterus Patient desires for discharge home today, baby was sent to home per her request. Reviewed care instructions, follow up in 2 weeks in clinic
--- NOTE | 2020-02-28 17:15 | US ---
INDICATION: Evaluate for retained products of conception TECHNIQUE: Grayscale imaging was performed of the pelvis, trans abdominally. COMPARISON: Ob ultrasound 02/27/2020 FINDINGS: Evaluation is somewhat limited due to patient body habitus. Uterus: 18.3 x 7.9 x 9.9 cm. The echotexture is grossly unremarkable. Endometrium: The endometrium is not thickened and measures 7 mm. No products of conception are visualized. Right ovary: The ovary is not visualized. Left ovary: The ovary is not visualized. Cul-de-sac: No free fluid is present. IMPRESSION: 1. Enlarged uterus, consistent with state. 2. Thin endometrium without evidence for retained products of conception. 3. Nonvisualization of the ovaries. Dictated by Fawn Huertas MD @ 02/28/2020 5:12:57 PM Dictated by: Fawn Huertas MD @ 02/28/2020 17:13:13 (Electronically Signed)
--- NOTE | 2020-02-28 22:34 | OR ---
SURGEON: Sai Roca MD DATE OF PROCEDURE: 02/28/2020 INDICATION FOR PROCEDURE: A 30-year-old, G5, P 2-1-1-3, at 18 weeks and 3 days by LMP consistent with first trimester ultrasound, presenting with demise. The patient had vaginal bleeding and presented to the emergency room, confirmed demise by ultrasound with the baby was measuring 15 weeks and 0 days. She had initial OB labs that were unremarkable. She previously had a delivery at 35 weeks, requiring , and two uncomplicated repeat C-sections at term. Reviewed options for management of missed , she desired induction of labor. Discussed with her possible etiology of demise including chromosomal, congenital abnormalities and infection. Offered testing for possible etiologies which she declined, as well as cytogenetics or autopsy. The patient received cytotec vaginally for induction of labor. After 3 doses, she started feeling cramping and with light bleeding. She was given Toradol and Percocet for pain. PREOPERATIVE DIAGNOSIS: Missed at 15 weeks and 0 days. POSTOPERATIVE DIAGNOSIS: Missed at 15 weeks and 0 days. PROCEDURE PERFORMED: Normal spontaneous vaginal delivery, removal of placenta. ANESTHESIA: None. FINDINGS: fetus measuring about 15 weeks' size. Grossly normal appearing without abnormalities. Baby appears to have been demised for some time, appears to be male. EBL: 300cc DESCRIPTION OF PROCEDURE: She became dilated and the baby was delivered spontaneously intact. The placenta did not deliver initially, so the cord was clamped and cut. The baby appears to have been demised for some time, was grossly normal appearing. She was given additional doses of Cytotec for the delivery of the placenta. After about 4 hours, the placenta was noted to be mostly in the vagina. It was removed with about 100 mL of blood clots. A speculum exam was performed and ring forceps were used to remove remaining placental tissue from the cervical os and lower uterine segment. She was given 3 doses of Hemabate for hemostasis. The bleeding was light and the fundus was firm and at the umbilicus. Repeat ultrasound was performed and no retained products of conception was seen in the uterus. The patient tolerated the procedure well and was given care instructions. HENOK / CATY /[id number] [facility]ORT[facility] MEDICAL CENTERJulia
== END 2020-02-28 18:00 | disposition home or self-care (01) | DRG 798 ==
LOC: MW.OBCHECK 14:04 → MW.OB 14:10 → MW.OBCHECK 18:14 → MW.OB 18:14 → OBSVTOIN 02-28 06:45
PROVIDERS: ADMIT Obstetrics & Gynecology; ATTEND Obstetrics & Gynecology
PROC: 10E0XZZ Delivery of Products of Conception, External Approach (ICD-10-PCS; principal; 2020-02-28)
PROC: 10D17ZZ Extraction of Products of Conception, Retained, Via Natural or Artificial Opening (ICD-10-PCS; 2020-02-28)
DX: O02.1 Missed abortion (principal); Z37.1 Single stillbirth; O99.212 Obesity complicating pregnancy, second trimester; E66.9 Obesity, unspecified; Z3A.15 15 weeks gestation of pregnancy; Z20.828 Contact with and (suspected) exposure to other viral communicable diseases
CPT/HCPCS: 36415; 59025; 59409; 76857; 76857-26; 86850; 86900; 86901; A9270-GY; J1885; J2590; U0002

== ENCOUNTER 2020-02-29 17:49 | Emergency (ER) | payer MEDICAID ==
[2020-02-29] MEDS ORDERED: HYDROmorphone 1 MG/ML Syringe ONE (18:41)
[2020-02-29] MEDS ORDERED: Sodium Chloride 0.9% 1,000 ML IV ONE (18:41)
[2020-02-29] MEDS ORDERED: Ondansetron 4 MG/2 ML SDV ONE (18:41)
[2020-02-29] MEDS ORDERED: HYDROmorphone 1 MG/ML Syringe IVPUSH ONE (18:41)
[2020-02-29] MEDS ORDERED: Ondansetron 4 MG/2 ML SDV IVPUSH ONE (18:42)
[2020-02-29 18:50] LABS: BLOOD UREA NITROGEN,BUN 7 mg/dL (7.0-18.0); CARBON DIOXIDE,CO2 25.3 mmol/L (21.0-32.0); CHLORIDE,CL 105 mmol/L (98-107); GLUCOSE RANDOM 95 mg/dL (74-106); POTASSIUM,K 3.5 mmol/L (3.5-5.1); SODIUM,NA 138 mmol/L (136-145)
--- NOTE | 2020-02-29 19:18 | EDM.PDOC ---
ED HPI GENERAL MEDICAL PROBLEM - General Chief Complaint: EQUIPMENT CLEANER Problem Stated Complaint: HEAVY BLEEDING Time Seen by Provider: 02/29/20 17:49 Source of Information: Reports: Patient History Limitations: Reports: No Limitations - History of Present Illness INITIAL COMMENTS - FREE TEXT/NARRATIVE: HISTORY AND PHYSICAL: History of present illness: Patient is a 30-year-old female who presents to the ED today with concern of increase in lower abdominal pain, dizziness, and increase in vaginal bleeding following a still at 18 weeks that occurred yesterday. Patient states about an hour before coming to the ED she had a sudden increase in vaginal bleeding. Patient states before this her bleeding was typical of an average menstrual cycle and states that 1 hour ago she has began passing large amount of clots. Patient states since then she has gone through multiple pads and has passed multiple large size clots. Patient states she is also had an increase in her lower abdominal pain and states that initially she was having typical menstrual cycle cramping but then with the onset of the heavy bleeding she now rates her lower abdominal pain 8 out of 10. Patient was in labor and delivery yesterday and delivered a baby due to demise. Patient states she was supposed to be about 18 weeks but delivered a baby who is approximately 15 weeks vaginally after given medication for induction of labor. Patient states that they did perform an ultrasound after the delivery of the fetus and states that she was told she had no retained products of conception. Patient denies fever, chills, chest pain, shortness of breath, or cough. Denies headache, neck stiff ness, change in vision, syncope, or near syncope. Denies nausea, vomiting, diarrhea, constipation, or dysuria. Has not noted any blood in urine or stool. Review of systems: As per history of present illness and below otherwise all systems reviewed and negative. Past medical history: As per history of present illness and as reviewed below otherwise noncontributory. Surgical history: As per history of present illness and as reviewed below otherwise noncontributory. Social history: See social history for further information Family history: As per history of present illness and as reviewed below otherwise noncontributory. Physical exam: General: Patient is alert, oriented, and in no acute distress. Patient laying comfortably on exam table. HEENT: Atraumatic, normocephalic, pupils equal and reactive bilaterally, negative for conjunctival pallor or scleral icterus, mucous membranes moist, TMs normal bilaterally, throat clear, neck supple, nontender, trachea midline. No drooling or trismus noted. No meningeal signs. No hot potato voice noted. Lungs: Clear to auscultation, breath sounds equal bilaterally, chest nontender. Heart: S1S2, regular rate and rhythm without overt murmur Abdomen: Soft, nondistended, moderate-severe pain with palpation of the suprapubic region. Negative for masses or hepatosplenomegaly. Negative for costovertebral tenderness. Pelvis: Stable nontender. Genitourinary: Supplier Quality Engineer at bedside Lexis MitchellServando Moderate amount of dark red vaginal bleeding with clots noted. Rectal: Deferred. Skin: Intact, warm, dry. No lesions or rashes noted. Extremities: Atraumatic, negative for cords or calf pain. Neurovascular unremarkable. Neuro: Awake, alert, oriented. Cranial nerves II through XII unremarkable. Cerebellum unremarkable. Motor and sensory unremarkable throughout. Exam nonfocal. Notes: Vitals stable and reviewed by me. Patient is much more comfortable after therapeutics given today in the ED. Call and speak to Dr. Roca OBGYN transition specialist for [facility], and thoroughly discussed patient's case. Dr. Dolan feels that since the ultrasound from yesterday showed no products of conception, that likely she is having a small amount of bleeding and patient's discomfort is likely due to passing of clots. Dr. Dolan states for patient to keep an eye on bleeding and if she is continuing to have heavy bleeding in the morning, to call [facility] to be further evaluated. Dr. Dolan does not feel that patient needs any medication for bleeding at this time. Discussed importance for follow-up with her EQUIPMENT CLEANER provider at [facility]. Voices understanding and is agreeable to plan of care. Denies any further questions or concerns at this time. Diagnostics: CBC, CMP, UA, Type and Screen, TVUS Therapeutics: 1L NS, Dilaudid 1mg IV (patient has tolerated this in the past), Zofran 4mg IV Prescription: None Impression: Abnormal uterine bleeding Plan: 1. Pelvic rest until cleared by your OBGYN (no tampons, sex, etc...) 2. Alternate Tylenol and Ibuprofen as needed for pain management. 3. Follow up with your EQUIPMENT CLEANER as discussed. If you are continuing to have heavy bleeding, call [facility] in the morning to be seen. Return to the ED as needed and as discussed. Definitive disposition and diagnosis as appropriate pending reevaluation and review of above. abdomen Pain Score (Numeric/FACES): 5 - Related Data Allergies Allergy/AdvReac Type Severity Reaction Status Date / Time morphine Allergy Severe Rash Verified 02/29/20 18:11 Home Meds: Home Meds Ibuprofen [Motrin] 800 mg PO Q8HR PRN tablet 02/28/20 [Rx] Past Medical History - Past Health History Medical/Surgical History: Denies Medical/Surgical History HEENT History: Reports: Other (See Below) Other HEENT History: dental braces Cardiovascular History: Reports: None Respiratory History: Reports: None Gastrointestinal History: Reports: Other (See Below) Other Gastrointestinal History: Gastric Bypass done in [place] on 09/21/2015 Genitourinary History: Reports: None EQUIPMENT CLEANER History: Reports: , Spontaneous Musculoskeletal History: Reports: Fracture Other Musculoskeletal History: R wrist- fracture- plates et screws Neurological History: Reports: None Psychiatric History: Reports: None Endocrine/Metabolic History: Reports: Obesity/BMI 30+ Hematologic History: Reports: Anemia Other Hematologic History: hx iron transfusion Immunologic History: Reports: None Oncologic (Cancer) History: Reports: None Dermatologic History: Reports: None - Infectious Disease History Infectious Disease History: Reports: None - Past Surgical History Head Surgeries/Procedures: Reports: None HEENT Surgical History: Reports: Oral Surgery Cardiovascular Surgical History: Reports: None Respiratory Surgical History: Reports: None GI Surgical History: Reports: Bariatric Procedure Female Surgical History: Reports: Section Other Female Surgeries/Procedures: x3 Endocrine Surgical History: Reports: Thyroidectomy Other Endocrine Surgeries/Procedures: partial thyroidectomy Neurological Surgical History: Reports: None Musculoskeletal Surgical History: Reports: ORIF Other Musculoskeletal Surgeries/Procedures:: Right wrist repair with metal plate Oncologic Surgical History: Reports: None Dermatological Surgical History: Reports: None Social & Family History - Family History Family Medical History: Noncontributory Cardiac: Reports: None Respiratory: Reports: None GI: Reports: None Psychiatric: Reports: None Endocrine/Metabolic: Reports: None Hematologic: Reports: None - Tobacco Use Smoking Status *Q: Never Smoker Second Hand Smoke Exposure: No - Caffeine Use Caffeine Use: Reports: None - Recreational Drug Use Recreational Drug Use: Yes ED ROS GENERAL - Review of Systems Review Of Systems: Comprehensive ROS is negative, except as noted in HPI. ED EXAM, GENERAL - Physical Exam Exam: See Below (see dictation) Course - Vital Signs Last Recorded V/S: Last Vital Signs Temp 97.7 F 02/29/20 18:08 Pulse 96 02/29/20 21:02 Resp 20 02/29/20 18:08 BP 114/66 02/29/20 21:02 Pulse Ox 100 02/29/20 21:02 - Orders/Labs/Meds Orders: Active Orders 24 hr Category Date Time Status UA RFX LAURENCE AND CULT IF INDIC [URIN] Stat Lab 02/29/20 17:59 Ordered Labs: Laboratory Tests 02/29/20 02/29/20 02/29/20 Range/Units 18:15 18:15 18:15 WBC 8.71 (4.0-11.0) K/uL RBC 3.70 L (4.30-5.90) M/uL Hgb 9.4 L (12.0-16.0) g/dL Hct 29.6 L (36.0-46.0) % MCV 80.0 (80.0-98.0) fL MCH 25.4 L (27.0-32.0) pg MCHC 31.8 (31.0-37.0) g/dL RDW Std Deviation 50.7 (28.0-62.0) fl RDW Coeff of Moe 17 H (11.0-15.0) % Plt Count 311 (150-400) K/uL MPV 10.50 (7.40-12.00) fL Neut % (Auto) 57.1 (48.0-80.0) % Lymph % (Auto) 30.3 (16.0-40.0) % [place] % (Auto) 10.3 (0.0-15.0) % Eos % (Auto) 1.8 (0.0-7.0) % Baso % (Auto) 0.5 (0.0-1.5) % Neut # (Auto) 5.0 (1.4-5.7) K/uL Lymph # (Auto) 2.6 H (0.6-2.4) K/uL [place] # (Auto) 0.9 H (0.0-0.8) K/uL Eos # (Auto) 0.2 (0.0-0.7) K/uL Baso # (Auto) 0.0 (0.0-0.1) K/uL Nucleated RBC % 0.0 /100WBC Nucleated RBCs # 0 K/uL Sodium 138 (136-145) mmol/L Potassium 3.5 (3.5-5.1) mmol/L Chloride 105 (98-107) mmol/L Carbon Dioxide 25.3 (21.0-32.0) mmol/L BUN 7 (7.0-18.0) mg/dL Creatinine 0.9 (0.6-1.0) mg/dL Est Cr Clr Drug Dosing 94.65 mL/min Estimated GFR (MDRD) > 60.0 ml/min Glucose 95 (74-106) mg/dL Calcium 7.9 L (8.5-10.1) mg/dL Total Bilirubin 0.4 (0.2-1.0) mg/dL AST 29 (15-37) IU/L ALT 36 (14-63) IU/L Alkaline Phosphatase 70 (46-116) U/L Total Protein 6.3 L (6.4-8.2) g/dL Albumin 2.6 L (3.4-5.0) g/dL Globulin 3.7 (2.6-4.0) g/dL Albumin/Globulin Ratio 0.7 L (0.9-1.6) Blood Type O POSITIVE Antibody Screen NEGATIVE 02/29/20 Range/Units 20:00 WBC (4.0-11.0) K/uL RBC (4.30-5.90) M/uL Hgb 8.7 L (12.0-16.0) g/dL Hct 27.7 L (36.0-46.0) % MCV (80.0-98.0) fL MCH (27.0-32.0) pg MCHC (31.0-37.0) g/dL RDW Std Deviation (28.0-62.0) fl RDW Coeff of Moe (11.0-15.0) % Plt Count (150-400) K/uL MPV (7.40-12.00) fL Neut % (Auto) (48.0-80.0) % Lymph % (Auto) (16.0-40.0) % [place] % (Auto) (0.0-15.0) % Eos % (Auto) (0.0-7.0) % Baso % (Auto) (0.0-1.5) % Neut # (Auto) (1.4-5.7) K/uL Lymph # (Auto) (0.6-2.4) K/uL [place] # (Auto) (0.0-0.8) K/uL Eos # (Auto) (0.0-0.7) K/uL Baso # (Auto) (0.0-0.1) K/uL Nucleated RBC % /100WBC Nucleated RBCs # K/uL Sodium (136-145) mmol/L Potassium (3.5-5.1) mmol/L Chloride (98-107) mmol/L Carbon Dioxide (21.0-32.0) mmol/L BUN (7.0-18.0) mg/dL Creatinine (0.6-1.0) mg/dL Est Cr Clr Drug Dosing mL/min Estimated GFR (MDRD) ml/min Glucose (74-106) mg/dL Calcium (8.5-10.1) mg/dL Total Bilirubin (0.2-1.0) mg/dL AST (15-37) IU/L ALT (14-63) IU/L Alkaline Phosphatase (46-116) U/L Total Protein (6.4-8.2) g/dL Albumin (3.4-5.0) g/dL Globulin (2.6-4.0) g/dL Albumin/Globulin Ratio (0.9-1.6) Blood Type Antibody Screen Meds: Medications Discontinued Medications Generic Name Dose Route Start Last Admin Trade Name Freq PRN Reason Stop Dose Admin Hydromorphone HCl 1 mg 02/29/20 18:41 02/29/20 18:49 Dilaudid IVPUSH 02/29/20 18:42 1 mg ONETIME ONE Administration Hydromorphone HCl Confirm 02/29/20 18:41 02/29/20 18:49 Dilaudid Administered 02/29/20 18:42 Not Given Dose 1 mg .ROUTE .STK-MED ONE Sodium Chloride 1,000 mls @ 999 mls/hr 02/29/20 18:41 02/29/20 18:45 Normal Saline IV 02/29/20 19:41 999 mls/hr STAT ONE Administration Ondansetron HCl 4 mg 02/29/20 18:42 02/29/20 18:45 Zofran IVPUSH 02/29/20 18:43 4 mg ONETIME ONE Administration Ondansetron HCl Confirm 02/29/20 18:41 02/29/20 18:50 Zofran Administered 02/29/20 18:42 Not Given Dose 4 mg .ROUTE .STK-MED ONE Departure - Departure Time of Disposition: 21:11 Disposition: Home, Self-Care 01 Clinical Impression: Abnormal uterine bleeding - Discharge Information Referrals: Evangelist Hammer MD [Primary Care Provider] - Forms: ED Department Discharge Additional Instructions: The following information is given to patients seen in the emergency department who are being discharged to home. This information is to outline your options for follow-up care. We provide all patients seen in our emergency department with a follow-up referral. The need for follow-up, as well as the timing and circumstances, are variable depending upon the specifics of your emergency department visit. If you don't have a primary care physician on staff, we will provide you with a referral. We always advise you to contact your personal physician following an emergency department visit to inform them of the circumstance of the visit and for follow-up with them and/or the need for any referrals to a consulting specialist. The emergency department will also refer you to a specialist when appropriate. This referral assures that you have the opportunity for follow-up care with a specialist. All of these measure are taken in an effort to provide you with optimal care, which includes your follow-up. Under all circumstances we always encourage you to contact your private physician who remains a resource for coordinating your care. When calling for follow-up care, please make the office aware that this follow-up is from your recent emergency room visit. If for any reason you are refused follow-up, please contact the [facility] Emergency Department at and asked to speak to the emergency department charge nurse. [facility] [address] [place] [id number] [facility] [address] [place] [address] [facility] [address] [place] [address] 1. Pelvic rest until cleared by your OBGYN (no tampons, sex, etc...) 2. Alternate Tylenol and Ibuprofen as needed for pain management. 3. Follow up with your EQUIPMENT CLEANER as discussed. If you are continuing to have heavy bleeding, call [facility] in the morning to be seen. Return to the ED as needed and as discussed. Sepsis Event Note (ED) - Evaluation Sepsis Screening Result: No Definite Risk - Focused Exam Vital Signs: Vital Signs Temp Pulse Resp BP Pulse Ox 02/29/20 21:02 96 114/66 100 02/29/20 20:17 87 105/63 100 02/29/20 19:02 76 110/76 100 02/29/20 18:08 97.7 F 109 H 20 122/77 99 - My Orders Last 24 Hours: My Active Orders 02/29/20 17:59 UA RFX LAURENCE AND CULT IF INDIC [URIN] Stat - Assessment/Plan Last 24 Hours: My Active Orders 02/29/20 17:59 UA RFX LAURENCE AND CULT IF INDIC [URIN] Stat
--- NOTE | 2020-02-29 20:34 | US ---
Pelvic ultrasound: Multiple real-time images were obtained transvaginally and transabdominally. Comparison: Previous pelvic ultrasound of 02/28/20. Findings: Uterus is anteverted. Slight thickening of the endometrial stripe is seen measuring 2.4 cm. There appears to be debris within the endometrial cavity. Uncertain if this represents retained products of conception or simply a small amount of hemorrhage. No additional endometrial or myometrial abnormality is seen other than uterus being mildly enlarged compatible with normal state. Both adnexa appeared normal. Ovaries are not seen at this time. No free fluid is seen. Impression: 1. Slight amount of material within the endometrial cavity. Uncertain if this represents retained products of conception or a small amount of hemorrhage. The latter is most likely since endometrium on study performed one day earlier appears normal. 2. No additional abnormality is seen. If patient continues to still bleed, follow-up study then recommended. Diagnostic code #3
[2020-02-29 21:08] VITALS: PULSE 96
[2020-02-29 21:38] VITALS: BP 115/79
== END 2020-02-29 21:40 | disposition home or self-care (01) ==
LOC: MW.ED 17:49
DX: N93.9 Abnormal uterine and vaginal bleeding, unspecified (principal); E66.9 Obesity, unspecified; Z68.43 Body mass index [BMI] 50.0-59.9, adult; Z88.5 Allergy status to narcotic agent
CPT/HCPCS: 36415; 76830; 80053; 85014; 85018; 85025; 86850; 86900; 86901; 93005; 96361; 96374; 96375; 99284; J1170; J2405; J7030

== ENCOUNTER 2021-02-25 20:07 | Emergency (ER) | payer MEDICAID ==
[2021-02-25] MEDS ORDERED: Lactated Ringers 1,000 ML IV ONE (20:30)
[2021-02-25] MEDS ORDERED: Sodium Chloride 0.9% 2.5 ML Syringe FLUSH PRN (20:30)
[2021-02-25] MEDS ORDERED: Sodium Chloride 0.9% 10 ML Syringe FLUSH PRN (20:30)
--- NOTE | 2021-02-25 20:33 | EDM.PDOC ---
ED HPI GENERAL MEDICAL PROBLEM - General Chief Complaint: General Stated Complaint: VOMITTING, DIZZY, LIGHTHEADED Time Seen by Provider: 02/25/21 20:25 - History of Present Illness INITIAL COMMENTS - FREE TEXT/NARRATIVE: 31-year-old female presents complaining of 1 week of chills and body aches and lightheadedness. She is coughing some yellow phlegm. She was Covid tested once this past week and was negative. She is not vaccinated against Covid. She states her children were sick at home to but they have gotten better. She has some pressure behind her sinuses. She vomited once quite a bit today. No diarrhea. No abdominal pain no vaginal bleeding or discharge. Patient states that she saw an BUILDING SERVICES TECHNICIAN recently and said that she was anemic and might need an iron transfusion. No exacerbating or alleviating factors Generalized Pain Score (Numeric/FACES): 3 - Related Data Allergies Allergy/AdvReac Type Severity Reaction Status Date / Time morphine Allergy Severe Rash Verified 02/25/21 20:21 Home Meds: Home Meds Ibuprofen [Motrin] 800 mg PO Q8HR PRN tablet 02/28/20 [Rx] Past Medical History - Past Health History Medical/Surgical History: Denies Medical/Surgical History HEENT History: Reports: Other (See Below) Other HEENT History: dental braces Cardiovascular History: Reports: None Respiratory History: Reports: None Gastrointestinal History: Reports: Other (See Below) Other Gastrointestinal History: Gastric Bypass done in [place] on 09/21/2015 Genitourinary History: Reports: None BUILDING SERVICES TECHNICIAN History: Reports: , Spontaneous Musculoskeletal History: Reports: Fracture Other Musculoskeletal History: R wrist- fracture- plates et screws Neurological History: Reports: None Psychiatric History: Reports: None Endocrine/Metabolic History: Reports: Obesity/BMI 30+ Hematologic History: Reports: Anemia Other Hematologic History: hx iron transfusion Immunologic History: Reports: None Oncologic (Cancer) History: Reports: None Dermatologic History: Reports: None - Infectious Disease History Infectious Disease History: Reports: None - Past Surgical History Head Surgeries/Procedures: Reports: None HEENT Surgical History: Reports: Oral Surgery Cardiovascular Surgical History: Reports: None Respiratory Surgical History: Reports: None GI Surgical History: Reports: Bariatric Procedure Female Surgical History: Reports: Section Other Female Surgeries/Procedures: x3 Endocrine Surgical History: Reports: Thyroidectomy Other Endocrine Surgeries/Procedures: partial thyroidectomy Neurological Surgical History: Reports: None Musculoskeletal Surgical History: Reports: ORIF Other Musculoskeletal Surgeries/Procedures:: Right wrist repair with metal plate Oncologic Surgical History: Reports: None Dermatological Surgical History: Reports: None Social & Family History - Family History Family Medical History: No Pertinent Family History Cardiac: Reports: None Respiratory: Reports: None GI: Reports: None Psychiatric: Reports: None Endocrine/Metabolic: Reports: None Hematologic: Reports: None - Tobacco Use Tobacco Use Status *Q: Never Tobacco User Second Hand Smoke Exposure: No - Caffeine Use Caffeine Use: Reports: None - Recreational Drug Use Recreational Drug Use: No ED ROS GENERAL - Review of Systems Review Of Systems: See Below Constitutional: Reports: Chills, Weakness. Denies: Fever HEENT: Reports: Sinus Problem Respiratory: Reports: Cough, Sputum. Denies: Shortness of Breath Cardiovascular: Denies: Chest Pain GI/Abdominal: Denies: Abdominal Pain : Denies: Dysuria, Flank Pain, Frequency Skin: Reports: No Symptoms Neurological: Reports: No Symptoms Hematologic/Lymphatic: Reports: Anemia ED EXAM, GENERAL - Physical Exam Exam: See Below Free Text/Narrative:: CONSTITUTIONAL: well appearing in no acute distress SKIN: Warm, dry, and intact without rash HENT: Normocephalic, atraumatic, PULMONARY: clear to ausculation bilaterally. No rales, rhonchi, wheezing CARDIOVASCULAR: regular rate, No murmur, rubs, or gallops GASTROINTESTINAL: soft, gravid, nontender NEUROLOGIC: normal speech, II-XII intact. light touch/5/5 power equal and symmetric in upper and lower extremities without deficit MUSCULOSKELETAL: no gross deformities, atraumatic PSYCHIATRIC: normal mood and affect Course - Vital Signs Text/Narrative:: Differential diagnosis: Pneumonia, viral syndrome, Covid, hyperemesis gravidarum, PE, other Patient presents as outlined above. Patient's laboratory work-up reveals a mild leukopenia and mild anemia but nothing more specific. Not low enough to do n iron transfusion. Patient is not hypoxic and there are no adventitious breath sounds or hypoxia to suggest pneumonia PE or other more serious underlying pulmonary pathology. Covid testing is negative. Bedside ultrasound shows an IUP with good movement and heart tones. Patient likely has a viral illness. Supportive care with return precautions and PCP/OB follow-up Last Recorded V/S: Last Vital Signs Temp 36.9 C 02/25/21 20:14 Pulse 100 02/25/21 20:58 Resp 18 02/25/21 20:58 BP 120/74 02/25/21 20:58 Pulse Ox 97 02/25/21 20:58 - Orders/Labs/Meds Orders: Active Orders 24 hr Category Date Time Status Sodium Chloride 0.9% [Saline Flush] Med 02/25/21 20:30 Active 10 ml FLUSH ASDIRECTED PRN Sodium Chloride 0.9% [Saline Flush] Med 02/25/21 20:30 Active 2.5 ml FLUSH ASDIRECTED PRN Saline Lock Insert [OM.PC] Stat Oth 02/25/21 20:30 Ordered Medication Orders Sodium Chloride (Sodium Chloride 0.9% 10 Ml Syringe) 10 ml FLUSH ASDIRECTED PRN PRN Reason: Keep Vein Open Last Admin: 02/25/21 20:41 Dose: 10 ml Documented by: TANIA Sodium Chloride (Sodium Chloride 0.9% 2.5 Ml Syringe) 2.5 ml FLUSH ASDIRECTED PRN PRN Reason: Keep Vein Open Last Admin: 02/25/21 20:41 Dose: 2.5 ml Documented by: TANIA Labs: Laboratory Tests 02/25/21 02/25/21 02/25/21 Range/Units 20:40 20:40 20:40 WBC 3.85 L (4.0-11.0) K/uL RBC 4.97 (4.30-5.90) M/uL Hgb 12.5 (12.0-16.0) g/dL Hct 38.3 (36.0-46.0) % MCV 77.1 L (80.0-98.0) fL MCH 25.2 L (27.0-32.0) pg MCHC 32.6 (31.0-37.0) g/dL RDW Std Deviation 55.4 (28.0-62.0) fl RDW Coeff of Moe 19 H (11.0-15.0) % Plt Count 222 (150-400) K/uL MPV 10.80 (7.40-12.00) fL Neut % (Auto) 67.3 (48.0-80.0) % Lymph % (Auto) 22.3 (16.0-40.0) % Sumter % (Auto) 10.4 (0.0-15.0) % Eos % (Auto) 0.0 (0.0-7.0) % Baso % (Auto) 0.0 (0.0-1.5) % Neut # (Auto) 2.6 (1.4-5.7) K/uL Lymph # (Auto) 0.9 (0.6-2.4) K/uL Sumter # (Auto) 0.4 (0.0-0.8) K/uL Eos # (Auto) 0.0 (0.0-0.7) K/uL Baso # (Auto) 0.0 (0.0-0.1) K/uL Nucleated RBC % 0.0 /100WBC Nucleated RBCs # 0 K/uL APTT 32.7 H (18.6-31.3) SEC Sodium (136-145) mmol/L Potassium (3.5-5.1) mmol/L Chloride (98-107) mmol/L Carbon Dioxide (21.0-32.0) mmol/L BUN (7.0-18.0) mg/dL Creatinine (0.6-1.0) mg/dL Est Cr Clr Drug Dosing mL/min Estimated GFR (MDRD) ml/min Glucose (74-106) mg/dL Calcium (8.5-10.1) mg/dL Total Bilirubin (0.2-1.0) mg/dL AST (15-37) IU/L ALT (14-63) IU/L Alkaline Phosphatase (46-116) U/L Total Protein (6.4-8.2) g/dL Albumin (3.4-5.0) g/dL Globulin (2.6-4.0) g/dL Albumin/Globulin Ratio (0.9-1.6) SARS-CoV-2 RNA (MICHAEL) NEGATIVE (NEGATIVE) 02/25/21 Range/Units 20:40 WBC (4.0-11.0) K/uL RBC (4.30-5.90) M/uL Hgb (12.0-16.0) g/dL Hct (36.0-46.0) % MCV (80.0-98.0) fL MCH (27.0-32.0) pg MCHC (31.0-37.0) g/dL RDW Std Deviation (28.0-62.0) fl RDW Coeff of Moe (11.0-15.0) % Plt Count (150-400) K/uL MPV (7.40-12.00) fL Neut % (Auto) (48.0-80.0) % Lymph % (Auto) (16.0-40.0) % Sumter % (Auto) (0.0-15.0) % Eos % (Auto) (0.0-7.0) % Baso % (Auto) (0.0-1.5) % Neut # (Auto) (1.4-5.7) K/uL Lymph # (Auto) (0.6-2.4) K/uL Sumter # (Auto) (0.0-0.8) K/uL Eos # (Auto) (0.0-0.7) K/uL Baso # (Auto) (0.0-0.1) K/uL Nucleated RBC % /100WBC Nucleated RBCs # K/uL APTT (18.6-31.3) SEC Sodium 135 L (136-145) mmol/L Potassium 3.7 (3.5-5.1) mmol/L Chloride 100 (98-107) mmol/L Carbon Dioxide 23.7 (21.0-32.0) mmol/L BUN 5 L (7.0-18.0) mg/dL Creatinine 0.9 (0.6-1.0) mg/dL Est Cr Clr Drug Dosing 93.78 mL/min Estimated GFR (MDRD) > 60.0 ml/min Glucose 105 (74-106) mg/dL Calcium 8.5 (8.5-10.1) mg/dL Total Bilirubin 0.4 (0.2-1.0) mg/dL AST 27 (15-37) IU/L ALT 32 (14-63) IU/L Alkaline Phosphatase 94 (46-116) U/L Total Protein 7.3 (6.4-8.2) g/dL Albumin 2.8 L (3.4-5.0) g/dL Globulin 4.5 H (2.6-4.0) g/dL Albumin/Globulin Ratio 0.6 L (0.9-1.6) SARS-CoV-2 RNA (MICHAEL) (NEGATIVE) Meds: Medications Generic Name Dose Route Start Last Admin Trade Name Freq PRN Reason Stop Dose Admin Sodium Chloride 10 ml 02/25/21 20:30 02/25/21 20:41 Sodium Chloride 0.9% 10 Ml Syringe FLUSH 10 ml ASDIRECTED PRN Administration Keep Vein Open Sodium Chloride 2.5 ml 02/25/21 20:30 02/25/21 20:41 Sodium Chloride 0.9% 2.5 Ml Syringe FLUSH 2.5 ml ASDIRECTED PRN Administration Keep Vein Open Discontinued Medications Generic Name Dose Route Start Last Admin Trade Name Adonay PRN Reason Stop Dose Admin Lactated Ringer's 1,000 mls @ 999 mls/hr 02/25/21 20:30 02/25/21 20:40 Ringers, Lactated IV 02/25/21 21:30 999 mls/hr .BOLUS ONE Administration Departure - Departure Time of Disposition: 20:59 Disposition: Home, Self-Care 01 Condition: Good Clinical Impression: Viral illness - Discharge Information Instructions: Viral Respiratory Infection, [id number] Referrals: PCP,None [Primary Care Provider] - Forms: ED Department Discharge Additional Instructions: Return for increasing shortness of breath, inability to tolerate fluids, abdominal pain, vaginal bleeding, change or worsening condition or lack of improvement. Follow-up with BUILDING SERVICES TECHNICIAN and primary care doctor this coming week Sepsis Event Note (ED) - Focused Exam Vital Signs: Vital Signs Temp Pulse Resp BP Pulse Ox 02/25/21 20:58 100 18 120/74 97 02/25/21 20:14 36.9 C 101 H 16 127/79 98 - My Orders Last 24 Hours: My Active Orders 02/25/21 20:30 Sodium Chloride 0.9% [Saline Flush] 10 ml FLUSH ASDIRECTED PRN Sodium Chloride 0.9% [Saline Flush] 2.5 ml FLUSH ASDIRECTED PRN Saline Lock Insert [OM.PC] Stat - Assessment/Plan Last 24 Hours: My Active Orders 02/25/21 20:30 Sodium Chloride 0.9% [Saline Flush] 10 ml FLUSH ASDIRECTED PRN Sodium Chloride 0.9% [Saline Flush] 2.5 ml FLUSH ASDIRECTED PRN Saline Lock Insert [OM.PC] Stat
[2021-02-25 21:07] LABS: BLOOD UREA NITROGEN,BUN 5 mg/dL (7.0-18.0); CARBON DIOXIDE,CO2 23.7 mmol/L (21.0-32.0); CHLORIDE,CL 100 mmol/L (98-107); GLUCOSE RANDOM 105 mg/dL (74-106); POTASSIUM,K 3.7 mmol/L (3.5-5.1); SODIUM,NA 135 mmol/L (136-145)
[2021-02-25 22:16] VITALS: BP 124/73; PULSE 82
== END 2021-02-25 22:16 | disposition home or self-care (01) ==
LOC: MW.ED 20:07
DX: B34.9 Viral infection, unspecified (principal); Z88.5 Allergy status to narcotic agent; Z20.822 Contact with and (suspected) exposure to COVID-19
CPT/HCPCS: 36415; 80053; 85025; 85730; 87635; 99284; J7120; U0002

== ENCOUNTER 2021-03-22 00:01 | Emergency (ER) | payer MEDICAID ==
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
[2021-03-22 03:20] VITALS: BP 110/70; PULSE 89
== END 2021-03-22 02:05 | disposition home or self-care (01) ==
LOC: MW.ED 00:01
DX: O99.891 Other specified diseases and conditions complicating pregnancy (principal); R10.11 Right upper quadrant pain; O99.212 Obesity complicating pregnancy, second trimester; Z68.43 Body mass index [BMI] 50.0-59.9, adult; Z88.5 Allergy status to narcotic agent; Z3A.19 19 weeks gestation of pregnancy
CPT/HCPCS: 99283

== ENCOUNTER 2021-08-09 05:27 | Inpatient (IN) | payer BC, MEDICAID ==
[2021-08-09] MEDS ORDERED: Sodium Chloride 0.9% 2.5 ML Syringe FLUSH PRN (05:32)
[2021-08-09] MEDS ORDERED: Citric Acid/Sodium Citrate Solution 30 ML Cup PO ONE (05:32)
[2021-08-09] MEDS ORDERED: Water For Irrigation,Sterile 1,000 ML Container IRR PRN (05:32)
[2021-08-09] MEDS ORDERED: Misoprostol 200 MCG Tab PO PRN (05:32)
[2021-08-09] MEDS ORDERED: Lidocaine 1% 50 ML MDV INJECT PRN (05:32)
[2021-08-09] MEDS ORDERED: Butorphanol 1 MG/ML SDV IVPUSH PRN (05:32)
[2021-08-09] MEDS ORDERED: Tranexamic Acid 1,000 MG in Sodium Chloride 0.9% 100 ML IV PRN ×2 (05:32→10:03)
[2021-08-09] MEDS ORDERED: Methylergonovine 0.2 MG/1 ML Amp IM PRN ×2 (05:32→10:03)
[2021-08-09] MEDS ORDERED: ceFAZolin 2 GM in Premix Bag 1 BAG IV ONE (05:32)
[2021-08-09] MEDS ORDERED: Sodium Chloride 0.9% 10 ML Syringe FLUSH PRN (05:32)
[2021-08-09] MEDS ORDERED: Sodium Chloride 0.9% 20 ML SDV IV PRN (05:32)
[2021-08-09] MEDS ORDERED: Carboprost Tromethamine 250 MCG/1 ML Amp IM PRN (05:32)
[2021-08-09] MEDS ORDERED: Lactated Ringers 1,000 ML IV SCH (05:45)
[2021-08-09] MEDS ORDERED: Oxytocin/0.9 % Sodium Chloride 30 UNIT/500 ML BAG IV SCH ×2 (05:45)
[2021-08-09] MEDS: Lactated Ringers 1,000 ML IV SCH ×4 (06:02→23:26)
[2021-08-09] MEDS ORDERED: ceFAZolin 1 GM in Premix Bag 1 BAG IV ONE (06:28)
[2021-08-09] MEDS ORDERED: Ropivacaine 0.5% 5 MG/ML 30 ML SDV ONE (07:10)
[2021-08-09] MEDS ORDERED: Oxytocin 10 Units/1 ML SDV ONE ×3 (07:18→09:13)
[2021-08-09] MEDS ORDERED: Famotidine 20 MG/2 ML SDV ONE (07:47)
[2021-08-09] MEDS ORDERED: Citric Acid/Sodium Citrate Solution 30 ML Cup ONE (07:47)
[2021-08-09] MEDS ORDERED: ceFAZolin 1 GM Vial ONE (07:56)
[2021-08-09] MEDS ORDERED: Lidocaine 1% 5 ML VIAL ONE (08:17)
[2021-08-09] MEDS ORDERED: ePHEDrine 50 MG/ML SDV ONE (08:26)
[2021-08-09] MEDS ORDERED: Ketorolac 30 MG/ML SDV ONE (08:47)
[2021-08-09] MEDS ORDERED: Ondansetron 4 MG/2 ML SDV ONE (08:47)
[2021-08-09] MEDS ORDERED: Bisacodyl 10 MG Supp RECTAL PRN (10:03)
[2021-08-09] MEDS ORDERED: Oxytocin 10 Units/1 ML SDV IM PRN (10:03)
[2021-08-09] MEDS ORDERED: diphenhydrAMINE 50 MG/ML SDV IVPUSH PRN ×2 (10:03→11:30)
[2021-08-09] MEDS ORDERED: Lanolin 100% Cream 7 GM Tube TOP PRN (10:03)
[2021-08-09] MEDS ORDERED: Ondansetron 4 MG/2 ML SDV IVPUSH PRN ×3 (10:03→11:30)
[2021-08-09] MEDS ORDERED: Aluminum Hydroxide/Magnesium Hydroxide/Simethicone XS Susp 30 ML Cup PO PRN (10:03)
[2021-08-09] MEDS ORDERED: Morphine 2 MG/ML SYRINGE IVPUSH PRN (10:12)
[2021-08-09] MEDS ORDERED: Naloxone 0.4 MG/ML SDV IVPUSH PRN ×2 (10:12→11:30)
[2021-08-09] MEDS ORDERED: Metoclopramide 10 MG/2 ML SDV IVPUSH PRN (10:12)
[2021-08-09] MEDS ORDERED: Albuterol 0.083% 2.5 MG/3 ML Neb Soln NEB PRN (10:12)
[2021-08-09] MEDS ORDERED: HYDROmorphone 1 MG/ML Syringe IVPUSH PRN (10:12)
[2021-08-09] MEDS ORDERED: Ketorolac 30 MG/ML SDV IVPUSH SCH (10:15)
[2021-08-09] MEDS ORDERED: fentaNYL 100 MCG/2 ML SDV ONE (10:39)
[2021-08-09] MEDS: fentaNYL 100 MCG/2 ML SDV IVPUSH PRN ×2 (10:42→11:32)
[2021-08-09] MEDS ORDERED: HYDROmorphone/Normal Saline 10 MG/50 ML PCA IV PRN (11:30)
[2021-08-09] MEDS ORDERED: diphenhydrAMINE 25 MG Cap PO PRN (11:30)
[2021-08-09] MEDS: Ketorolac 30 MG/ML SDV IVPUSH SCH ×2 (15:13→21:31)
[2021-08-09] MEDS: Simethicone 80 MG Tab.Chew PO SCH ×2 (15:33→18:20)
[2021-08-09] MEDS: Docusate Sodium 100 MG Cap PO SCH (21:31)
[2021-08-09] MEDS ORDERED: Acetaminophen 1,000 MG in Premix Bag 1 BAG IV ONE (23:01)
[2021-08-10] MEDS: Simethicone 80 MG Tab.Chew PO SCH ×4 (00:15→17:20)
[2021-08-10] MEDS: Ketorolac 30 MG/ML SDV IVPUSH SCH ×2 (03:28→09:50)
[2021-08-10] MEDS: Acetaminophen/oxyCODONE 325-5 MG Tab PO PRN ×3 (08:13→20:53)
[2021-08-10] MEDS: Docusate Sodium 100 MG Cap PO SCH ×2 (09:50→20:52)
[2021-08-10] MEDS: Ibuprofen 800 MG Tab PO PRN (17:17)
[2021-08-11 00:09] VITALS: PULSE 105
[2021-08-11] MEDS: Acetaminophen/oxyCODONE 325-5 MG Tab PO PRN ×2 (01:03→07:54)
[2021-08-11] MEDS: Simethicone 80 MG Tab.Chew PO SCH ×2 (01:03→06:02)
[2021-08-11] MEDS: Ibuprofen 800 MG Tab PO PRN (06:03)
[2021-08-11 08:11] VITALS: BP 149/78
== END 2021-08-11 12:35 | disposition home or self-care (01) | DRG 540 ==
LOC: MW.OB 05:27
PROVIDERS: ADMIT Obstetrics & Gynecology; ATTEND Obstetrics & Gynecology
PROC: 10D00Z1 Extraction of Products of Conception, Low, Open Approach (ICD-10-PCS; principal; 2021-08-09)
DX: O99.214 Obesity complicating childbirth (principal); E66.01 Morbid (severe) obesity due to excess calories; Z3A.38 38 weeks gestation of pregnancy; Z37.0 Single live birth; O34.211 Maternal care for low transverse scar from previous cesarean delivery; Z88.5 Allergy status to narcotic agent; O69.81X0 Labor and delivery complicated by cord around neck, without compression, not applicable or unspecified
CPT/HCPCS: 01961; 36415; 59025; 64488; 82803; 85014; 85018; 85027; 86592; 86850; 86900; 86901; A9270-GY; J0131; J0690; J1170; J1885; J2370; J2405; J2590; J2795; J3010; J3490; J7120; U0002